=== PATIENT | female | born 1955 | race Caucasian/White ===

== ENCOUNTER 2019-11-10 17:02 | Inpatient (IN) | payer MEDICARE, OTHER ==
--- NOTE | 2019-11-10 18:04 | ED ---
General Adult HPI - General Chief complaint: Shortness of Breath Stated complaint: COPD exacerbation Time Seen by Provider: 11/10/19 17:31 Source: patient, EMS Mode of arrival: EMS Limitations: no limitations - History of Present Illness Initial comments: Patient is a 64-year-old female, with history of COPD, CHF, presenting to the emergency Department as a transfer from [facility]. She presented with a few weeks of difficulty breathing, chest pain, fatigue, cough. She also had pain in her epigastric area along with nausea and vomiting. Normal bowel movements, normal urination. Her chest pain is reported mostly on the right side of her chest. Patient is normally on 2 L of O2 at home. She's been having lower leg edema as well. Drinking alcohol today. Patient was transferred for COPD exacerbation and alcohol intoxication. Patient has no other complaints at this time. Upon arrival to the ER, her vital signs are stable, 97% on 3 L. - Related Data Allergies Allergy/AdvReac Type Severity Reaction Status Date / Time No Known Allergies Allergy Verified 11/10/19 17:09 Review of Systems ROS Statement: Those systems with pertinent positive or pertinent negative responses have been documented in the HPI. ROS Other: All systems not noted in ROS Statement are negative. Past Medical History Past Medical History: Asthma, Heart Failure, COPD History of Any Multi-Drug Resistant Organisms: None Reported Past Surgical History: No Surgical Hx Reported Smoking Status: Current every day smoker Past Alcohol Use History: Daily Past Drug Use History: None Reported General Exam - General Exam Comments Initial Comments: GENERAL: Well-appearing, well-nourished and in no acute distress. HEAD: Atraumatic, normocephalic. EYES: Pupils equal round and reactive to light, extraocular movements intact, sclera anicteric, conjunctiva are normal. ENT: TMs normal, nares patent, oropharynx clear without exudates. Moist mucous membranes. NECK: Normal range of motion, supple without lymphadenopathy or JVD. LUNGS: Scattered wheezes throughout, increase with forced expiration. No rales or rhonchi. HEART: Regular rate and rhythm without murmurs, rubs or gallops. ABDOMEN: Soft, nontender, normoactive bowel sounds. No guarding, no rebound. No masses appreciated. : Deferred EXTREMITIES: Mild bilateral lower leg edema. Normal range of motion. No clubbing or cyanosis. Chronic back pain. NEUROLOGICAL: Cranial nerves II through XII grossly intact. Normal speech,. PSYCH: Normal mood, normal affect. SKIN: Warm, Dry, normal turgor, no rashes or lesions noted. Limitations: no limitations Course Vital Signs 11/10/19 11/10/19 11/10/19 17:09 18:05 19:37 Temperature 98.5 F Pulse Rate 83 89 Respiratory 22 24 19 Rate Blood Pressure 151/76 146/99 O2 Sat by Pulse 97 90 L Oximetry EKG Findings - EKG Comments: EKG Findings:: , Nonspecific T-wave abnormalities, no signs of acute ischemia. Ventricular rate 78, KS interval 162, QTC 458. Medical Decision Making - Medical Decision Making Patient 64-year-old female with history of COPD, CHF presenting as a transfer from [facility]. Workup from [facility] was reviewed and includes lab work shows elevated BUN, BNP normal, lactic acid is normal, EtOH is 287. EKG shows no signs of acute ischemia, chest x-ray showed cardiomegaly, CT chest no evidence of PE or acute process, CT abdomen and pelvis no acute process. Patient received a breathing treatment, prednisone, fluids, doxycycline before arrival. Upon arrival to our facility, her vital signs are stable she is on at 97% on 3 L. She seems comfortable. Her only complaint at this time is lower leg edema. EKG here shows no acute process. Patient will be admitted for COPD exacerbation as well as alcohol intoxication. Patient is in agreement with this plan. Patient was accepted by Dr. Jones COVID is negative. Case discussed with Dr. Thorpe. - Lab Data Lab Results 11/10/19 Range/Units 19:40 Coronavirus (PCR) Not Detected (Not Detectd) Disposition Clinical Impression: Congestive heart failure, COPD exacerbation, Alcohol intoxication Disposition: ADMITTED IP TO THIS HOSP Condition: Stable Is patient prescribed a controlled substance at d/c from ED?: No Referrals: Charli Richardson DO [Primary Care Provider] - 1-2 days Decision Date: 11/10/19 Decision Time: 19:08
[2019-11-10] MEDS ORDERED: NALOXONE 0.4 MG/ML 1 ML VIAL IV PRN (19:06)
[2019-11-10] MEDS ORDERED: SODIUM CHLORIDE 0.9% 1,000 ML IV STA (19:29)
[2019-11-10] MEDS ORDERED: LORazepam 2 MG/ML INJ IV PRN ×3 (21:19)
[2019-11-10] MEDS ORDERED: IPRATROPIUM-ALBUTEROL 3 ML NEB INHALATION PRN (21:23)
--- NOTE | 2019-11-10 21:28 | P.HPIM ---
History of Present Illness H&P Date: 11/10/19 The patient is a 64-year-old female with a PMH of COPD with chronic hypoxic respiratory failure (on 2 L NC oxygen at home), chronic EtOH abuse, and hypertension who was transferred from [facility] where the patient had presented earlier in the day with complaints of gradually worsening sh ortness of breath and cough. Patient reports that over the last one week, her breathing has gradually worsened, despite her use of inhalers and oxygen therapy at home. She also notes that cough productive of whitish phlegm, with wheezing and a right-sided chest discomfort brought on with excessive coughing. She notes that her chest pain is nonexertional, nonradiating, with no associated palpitations. She feels that this is very much in line with her previous episodes of COPD exacerbation. He notes that she has also been drinking excessively for the past 1 week, drinking a fifth of vodka and to 3 days, with her last drink being early in the morning. Patient also reported noticing bilateral foot swelling over the past 3 days. She notes that she was previously told she had congestive heart failure. She also notes that over the past few days she has been unable to eat or drink much due to a persistent nausea and coughing. The patient otherwise denied fever, chills, diarrhea, headaches, visual disturbances, weakness, or numbness. She underwent an extensive evaluation at [facility] which was all reviewed, with CT chest with contrast negative for PE and unremarkable. CT abdomen and pelvis with contrast revealed a 2.3 cm low-density lesion in the right adnexa, possibly a cyst, but was otherwise unremarkable. EKG had revealed a normal sinus rhythm at 78 bpm with left axis deviation and T-wave inversion in leads V1 to V3. Laboratory evaluation had revealed a BNP of 35, troponin negative, alcohol level 258, BUN 33, creatinine 1.2, WBC 8.1, hemoglobin 13.3, platelets 358, sodium 141, potassium 4.3, chloride 108, CO2 24, lactate 1.7, lipase 68, Tylenol level of 7, AST 19, and ALT 16. Coronavirus pcr was negative. The patient is being admitted to the medicine service for further management of acute COPD exacerbation and alcohol intoxication. Review of Systems Pertinent positives and negatives as discussed in HPI, a complete review of systems was performed and all other systems are negative. Past Medical History Past Medical History: Asthma, Heart Failure, COPD, Hypertension History of Any Multi-Drug Resistant Organisms: None Reported Past Surgical History: No Surgical Hx Reported Smoking Status: Current every day smoker Past Alcohol Use History: Daily Past Drug Use History: None Reported - Past Family History Father Family Medical History: Hypertension Medications and Allergies Home Medications Medication Instructions Recorded Confirmed Type ALPRAZolam [Xanax] 0.375 mg PO HS 11/10/19 11/10/19 History Albuterol Sulfate [Ventolin HFA] 2 puff INHALATION RT-Q4H PRN 11/10/19 11/10/19 History Ascorbic Acid [Vitamin C] 1,000 mg PO Q48H 11/10/19 11/10/19 History Atenolol [Tenormin] 50 mg PO DAILY 11/10/19 11/10/19 History Benralizumab [Fasenra] 30 mg SQ DIRECTED 11/10/19 11/10/19 History Budesonide/Formoterol Fumarate 2 puff INHALATION RT-BID 11/10/19 11/10/19 History [Symbicort 80-4.5 Mcg Inhaler] FLUoxetine HCL [PROzac] 20 mg PO DAILY 11/10/19 11/10/19 History Hydrocodone/Acetaminophen [Keeling 1 tab PO BID PRN 11/10/19 11/10/19 History 5-325] Isosorbide Mononitrate ER [Imdur] 15 mg PO DAILY 11/10/19 11/10/19 History Loratadine 10 mg PO DAILY 11/10/19 11/10/19 History Montelukast Sodium [Singulair] 10 mg PO HS 11/10/19 11/10/19 History Dunn-3 Fatty Acids [Dunn-3] 1,000 mg PO Q48H 11/10/19 11/10/19 History Triamterene/Hydrochlorothiazid 1 cap PO DAILY 11/10/19 11/10/19 History [Dyazide 37.5-25 Capsule] Allergies Allergy/AdvReac Type Severity Reaction Status Date / Time No Known Allergies Allergy Verified 11/10/19 21:17 Physical Exam Vitals: Vital Signs Temp Pulse Resp BP Pulse Ox 11/10/19 19:37 89 19 146/99 90 L 11/10/19 18:05 24 11/10/19 17:09 98.5 F 83 22 151/76 97 Intake and Output 11/10/19 11/10/19 11/10/19 06:59 14:59 22:59 Other: Weight 68.039 kg General: non toxic, no distress, appears at stated age, normal weight, somewhat tremulous Derm: no unusual rashes/lesions no unusual ecchymoses, warm, dry Head: atraumatic, normocephalic, symmetric Eyes: EOMI, no lid lag, anicteric sclera, pupils equal round reactive to light ENT: Nose and ears atraumatic, no thrush, no pharyngeal erythema Neck: No thyromegaly, no cervical lymphadenopathy, trachea midline, supple Mouth: no lip lesion, mucus membranes moist Cardiovascular: S1S2 reg, no murmur, positive posterior tibial pulse bilateral, 1+ bilateral lower extremity edema to mid shins, capillary refill less than 2 seconds Lungs: Poor air entry bilaterally with expiratory wheezing appreciated, no rhonchi or rales, no conversational dyspnea and no accessory muscle use Abdominal: soft, nontender to palpation, no guarding, no appreciable organomegaly, normal bowel sounds Ext: no gross muscle atrophy, muscle strength 5 out of 5 in all 4 extremities grossly, no contractures, Neuro: CN II-XI grossly intact, light touch intact all 4 extremities, finger to nose within normal limits, outstretched hand tremor bilaterally Psych: Alert, oriented, appropriate affect Assessment and Plan Plan: Acute COPD exacerbation -Continue with Solu-Medrol -DuoNeb's -Supplemental oxygen -Continue with home Symbicort Bilateral lower extremity edema with cardiomegaly on chest x-ray at [facility] -Obtain echocardiogram -Continue with home Dyazide 37.5 - 25 mg -Very judicious use of IV fluids Right-sided chest pain with possible history of CHF -Trend troponins for now -Cardiac monitoring Alcohol intoxication, impending withdrawal -Thiamine, folate, multivitamin -Advised on the importance of cessation -CIWA protocol -Aspiration, seizure, fall precautions -Monitor electrolytes daily STEPHEN, prerenal, likely secondary to poor oral intake -Judicious use of IV fluids in setting of lower extremity edema -Monitor BMP Chronic conditions: Hypertension -Continue with home meds: Atenolol, Imdur, Dyazide DVT prophylaxis -Heparin subq The patient is admitted with an anticipated less than 2 midnight stay for evaluation of acute COPD exacerbation CODE STATUS: No Code Discussed with: Patient Anticipated discharge date: 11/12/[address]: Home A total of 40 minutes was spent on the care of this complex patient more than 50% of the time was spent in counseling and care coordination.
[2019-11-10] MEDS: THIAMINE 100 MG TAB PO SCH (22:27)
[2019-11-11] MEDS: methylPREDNISolone SOD SUCCI 125 MG/2 ML VIAL IV SCH ×2 (00:02→07:41)
[2019-11-11] MEDS: HEPARIN SODIUM,PORCINE 5,000 UNIT/ML 1 ML VIAL SQ SCH ×3 (00:02→15:34)
[2019-11-11 06:17] LABS: Basophils % (A) 0 %; Eosinophils % (A) 1 %; HGB 13.2 gm/dL (11.4-16.0); Hypochromasia Slight; Lymphocytes # (A) 0.7 k/uL (1.0-4.8); Lymphocytes % (A) 9 %; MCH 30.4 pg (25.0-35.0); MCHC 30.8 g/dL (31.0-37.0); MCV 98.9 fL (80.0-100.0); Monocytes # (A) 0.2 k/uL (0-1.0); Monocytes % (A) 2 %; Neutrophils # (A) 6.9 k/uL (1.3-7.7); Neutrophils % (A) 89 %; Platelet Count 334 k/uL (150-450); RBC 4.35 m/uL (3.80-5.40); RDW 13.8 % (11.5-15.5); WBC 7.8 k/uL (3.8-10.6)
[2019-11-11 06:27] LABS: Calcium 9.3 mg/dL (8.4-10.2); Magnesium 1.8 mg/dL (1.6-2.3); Potassium 5.3 mmol/L (3.5-5.1)
[2019-11-11] MEDS: ISOSORBIDE MONONITRATE ER 30 MG TAB.ER.24H PO SCH (07:39)
[2019-11-11] MEDS: FLUoxetine HCL 20 MG CAP PO SCH (07:40)
[2019-11-11] MEDS: THIAMINE 100 MG TAB PO SCH ×2 (07:40→16:37)
[2019-11-11] MEDS: ATENOLOL 50 MG TAB PO SCH (07:40)
[2019-11-11] MEDS: MULTIVITAMINS, THERA 1 EACH TAB PO SCH (07:40)
[2019-11-11] MEDS: TRIAMTERENE-HCTZ 37.5-25MG 1 EACH CAP PO SCH (07:54)
[2019-11-11] MEDS ORDERED: IPRATROPIUM-ALBUTEROL 3 ML NEB INHALATION SCH (08:00)
[2019-11-11] MEDS ORDERED: predniSONE 20 MG TAB PO SCH (09:00)
[2019-11-11] MEDS ORDERED: IBUPROFEN 400 MG TAB PO PRN (09:11)
--- NOTE | 2019-11-11 10:26 | ECHOF ---
Referral Reason:LE edema, SOB, Cardiomegaly MEASUREMENTS -------- HEIGHT: 162.6 cm WEIGHT: 68.0 kg BP: RVIDd: 2.5 cm (< 3.3) IVSd: 1.2 cm (0.6 - 1.1) LVIDd: 3.0 cm (3.9 - 5.3) LVPWd: 1.6 cm (0.6 - 1.1) IVSs: 1.9 cm LVIDs: 1.6 cm LVPWs: 2.0 cm Ao Diam: 2.5 cm (2.0 - 3.7) AV Cusp: 1.7 cm (1.5 - 2.6) LA Diam: 3.6 cm (2.7 - 3.8) MV E Marty: 0.93 m/s MV DecT: 97 ms MV A Marty: 0.44 m/s MV E/A Ratio: 2.09 RAP: 5.00 mmHg RVSP: 9.03 mmHg FINDINGS -------- Undetermined rhythm. This was a technically difficult study with suboptimal views. The left ventricular size is normal. There is mild concentric left ventricular hypertrophy. Overa ll left ventricular systolic function is normal with, an EF between 55 - 60 %. The right ventricle is normal in size. The left atrial size is normal. The right atrial size is normal. 5.0mg of Lumason was utilized for enhancement of images The aortic valve is trileaflet and appears structurally normal. The mitral valve is normal. There is trace mitral regurgitation. The tricuspid valve appears structurally normal. Trace tricuspid regurgitation present. Right mychal tricular systolic pressure is normal at < 35 mmHg. There is no pulmonic regurgitation present. The aortic root size is normal. IVC Not well visulized. There is no pericardial effusion. CONCLUSIONS -------- 1. Undetermined rhythm. 2. This was a technically difficult study with suboptimal views. 3. The left ventricular size is normal. 4. There is mild concentric left ventricular hypertrophy. 5. Overall left ventricular systolic function is normal with, an EF between 55 - 60 %. 6. The right ventricle is normal in size. 7. The left atrial size is normal. 8. The right atrial size is normal. 9. 5.0mg of Lumason was utilized for enhancement of images 10. The aortic valve is trileaflet and appears structurally normal. 11. The mitral valve is normal. 12. There is trace mitral regurgitation. 13. The tricuspid valve appears structurally normal. 14. Trace tricuspid regurgitation present. 15. Right ventricular systolic pressure is normal at < 35 mmHg. 16. There is no pulmonic regurgitation present. 17. The aortic root size is normal. 18. IVC Not well visulized. 19. There is no pericardial effusion. [employer] C[employer]TING MACHINE OPERATOR: Hyalie Kessler RDCS
--- NOTE | 2019-11-11 10:40 | P.PN ---
Subjective Progress Note Date: 11/11/19 The patient is a 64-year-old female with a PMH of COPD with chronic hypoxic respiratory failure (on 2 L NC oxygen at home), chronic EtOH abuse, and hypertension who was transferred from [facility] where the patient had presented earlier in the day with complaints of gradually worsening shortnes s of breath and cough. Patient reports that over the last one week, her breathing has gradually worsened, despite her use of inhalers and oxygen therapy at home. She also notes that cough productive of whitish phlegm, with wheezing and a right-sided chest discomfort brought on with excessive coughing. She notes that her chest pain is nonexertional, nonradiating, with no associated palpitations. She feels that this is very much in line with her previous episodes of COPD exacerbation. He notes that she has also been drinking excessively for the past 1 week, drinking a fifth of vodka and to 3 days, with her last drink being early in the morning. Patient also reported noticing bilateral foot swelling over the past 3 days. She notes that she was previously told she had congestive heart failure. She also notes that over the past few days she has been unable to eat or drink much due to a persistent nausea and coughing. The patient otherwise denied fever, chills, diarrhea, headaches, v isual disturbances, weakness, or numbness. She underwent an extensive evaluation at [facility] which was all reviewed, with CT chest with contrast negative for PE and unremarkable. CT abdomen and pelvis with contrast revealed a 2.3 cm low-density lesion in the right adnexa, possibly a cyst, but was otherwise unremarkable. EKG had revealed a normal sinus rhythm at 78 bpm with left axis deviation and T-wave inversion in leads V1 to V3. Laboratory evaluation had revealed a BNP of 35, troponin negative, alcohol level 258, BUN 33, creatinine 1.2, WBC 8.1, hemoglobin 13.3, platelets 358, sodium 141, potassium 4.3, chloride 108, CO2 24, lactate 1.7, lipase 68, Tylenol level of 7, AST 19, and ALT 16. Coronavirus pcr was negative. The patient is being admitted to the medicine service for further management of acute COPD exacerbation and alcohol intoxication. 11/10 patient was seen and evaluated by me today. She reported that her shortness of breath is improving but is not back to baseline yet. She admitted that she is still smoking cigarettes approximately 10 cigarettes per day. She denies fevers or chills. No orthopnea. Patient denies any chest pain Objective - Vital Signs Vital signs: Vital Signs Temp 98.5 F 11/11/19 05:00 Pulse 96 11/11/19 07:28 Resp 24 11/11/19 05:00 BP 177/98 11/11/19 05:00 Pulse Ox 92 L 11/11/19 05:00 Intake & Output 11/10/19 11/11/19 11/11/19 18:59 06:59 18:59 Intake Total 240 Balance 240 Weight 68.039 kg 68.039 kg 70.4 kg Intake: Oral 240 Other: Voiding Method Bedside Commode # Voids 2 2 # Bowel Movements 1 1 - Exam General: The patient is awake and alert, in no distress Eye: there is normal conjunctiva bilaterally. Neck: The neck is supple, there is no JVD. Cardiovascular: Normal S1-S2, no S3-S4, no murmurs. Respiratory: Lungs with diffuse wheezing all over the chest Gastrointestinal: Abdomen is soft, nontender Musculoskeletal: There is no pedal edema. Neurological:. Speech is normal. Skin: Skin is warm and dry - Labs CBC & Chem 7: 11/11/19 05:58 11/11/19 05:58 Labs: Abnormal Lab Results - Last 24 Hours (Table) 11/11/19 11/11/19 Range/Units 05:58 05:58 MCHC 30.8 L (31.0-37.0) g/dL Lymphocytes # 0.7 L (1.0-4.8) k/uL Potassium 5.3 H (3.5-5.1) mmol/L BUN 29 H (7-17) mg/dL Glucose 126 H (74-99) mg/dL Assessment and Plan Assessment: Acute COPD exacerbation -Continue with Solu-Medrol, I would decrease the dose to 40 mg IV every 8 hours. May transition to oral prednisone tomorrow -DuoNeb's, I would change to every 4 hours scheduled -Supplemental oxygen -Continue with home Symbicort Bilateral lower extremity trace edema with cardiomegaly on chest x-ray at [facility] -BNP was normal. Echocardiogram showed preserved ejection fraction of 55-60% -Probably venous insufficiency Alcohol intoxication, no evidence of withdrawal -Thiamine, folate, multivitamin -Advised on the importance of cessation -CIWA protocol as needed -Aspiration, seizure, fall precautions -Monitor electrolytes daily STEPHEN, prerenal, likely secondary to poor oral intake -Resolved with IV fluid hydration would discontinue Chronic conditions: Hypertension -Continue with home meds: Atenolol, Imdur, Dyazide DVT prophylaxis -Heparin subq The patient is admitted with an anticipated less than 2 midnight stay for evaluation of acute COPD exacerbation CODE STATUS: No Code Discussed with: Patient Anticipated discharge date: 11/12/[address]: Home
[2019-11-11] MEDS: SYMBICORT 80-4.5 MCG INHALER INHALATION SCH ×2 (10:53→20:29)
[2019-11-11] MEDS: IPRATROPIUM-ALBUTEROL 3 ML NEB INHALATION SCH ×3 (10:53→20:20)
[2019-11-11] MEDS: methylPREDNISolone SOD SUCCI 40 MG/ML 1 ML VIAL IV SCH (15:34)
[2019-11-11] MEDS: HYDROcodone/APAP 5-325MG 1 EACH TAB PO PRN (19:27)
[2019-11-11] MEDS: MONTELUKAST 10 MG TAB PO SCH (19:28)
[2019-11-12] MEDS: methylPREDNISolone SOD SUCCI 40 MG/ML 1 ML VIAL IV SCH ×4 (00:35→21:22)
[2019-11-12] MEDS: HEPARIN SODIUM,PORCINE 5,000 UNIT/ML 1 ML VIAL SQ SCH ×3 (00:35→16:57)
[2019-11-12] MEDS: HYDROcodone/APAP 5-325MG 1 EACH TAB PO PRN ×2 (00:38→16:58)
[2019-11-12] MEDS: IPRATROPIUM-ALBUTEROL 3 ML NEB INHALATION SCH ×6 (01:50→19:08)
[2019-11-12 06:36] LABS: Basophils % (A) 0 %; Eosinophils % (A) 0 %; HCT 40.1 % (34.0-46.0); HGB 13.1 gm/dL (11.4-16.0); Lymphocytes # (A) 0.8 k/uL (1.0-4.8); Lymphocytes % (A) 10 %; MCH 31.6 pg (25.0-35.0); MCHC 32.7 g/dL (31.0-37.0); MCV 96.6 fL (80.0-100.0); Mean Platelet Volume 7.5; Monocytes # (A) 0.2 k/uL (0-1.0); Monocytes % (A) 3 %; Neutrophils % (A) 87 %; Platelet Count 327 k/uL (150-450); RBC 4.15 m/uL (3.80-5.40); RDW 13.7 % (11.5-15.5); WBC 8.1 k/uL (3.8-10.6)
[2019-11-12 06:48] LABS: Calcium 9.5 mg/dL (8.4-10.2); Potassium 4.5 mmol/L (3.5-5.1)
[2019-11-12] MEDS: SYMBICORT 80-4.5 MCG INHALER INHALATION SCH ×2 (07:30→19:09)
[2019-11-12] MEDS: TRIAMTERENE-HCTZ 37.5-25MG 1 EACH CAP PO SCH (07:53)
[2019-11-12] MEDS: MULTIVITAMINS, THERA 1 EACH TAB PO SCH (07:54)
[2019-11-12] MEDS: THIAMINE 100 MG TAB PO SCH ×2 (07:54→16:57)
[2019-11-12] MEDS: ISOSORBIDE MONONITRATE ER 30 MG TAB.ER.24H PO SCH (07:54)
[2019-11-12] MEDS: FLUoxetine HCL 20 MG CAP PO SCH (07:54)
[2019-11-12] MEDS: ATENOLOL 50 MG TAB PO SCH (07:54)
--- NOTE | 2019-11-12 08:46 | P.PN ---
Subjective Progress Note Date: 11/12/19 Principal diagnosis: copd exacerbation 11/12/19 Patient seen and examined at bedside. Patient states that her breathing has improved since yesterday. However, patient continues to have expiratory wheezing. Patient denies chest pain, fever, chills, nausea, vomiting, diarrhea, or constipation. The patient is a 64-year-old female with a PMH of COPD with chronic hypoxic respiratory failure (on 2 L NC oxygen at home), chronic EtOH abuse, and hypertension who was transferred from [facility] where the patient had presented earlier in the day with complaints of gradually worsening shortness of breath and cough. Patient reports that over the last one week, her breathing has gradually worsened, despite her use of inhalers and oxygen therapy at home. She also notes that cough productive of whitish phlegm, with wheezing and a right-sided chest discomfort brought on with excessive coughing. She notes that her chest pain is nonexertional, nonradiating, with no associated palpitations. She feels that this is very much in line with her previous episodes of COPD exacerbation. He notes that she has also been drinking excessively for the past 1 week, drinking a fifth of vodka and to 3 days, with her last drink being early in the morning. Patient also reported noticing bilateral foot swelling over the past 3 days. She notes that she was previously told she had congestive heart failure. She also notes that over the past few days she has been unable to eat or drink much due to a persistent nausea and coughing. The patient otherwise denied fever, chills, diarrhea, headaches, visual disturbances, weakness, or numbness. She underwent an extensive evalu ation at [facility] which was all reviewed, with CT chest with contrast negative for PE and unremarkable. CT abdomen and pelvis with contrast revealed a 2.3 cm low-density lesion in the right adnexa, possibly a cyst, but was otherwise unremarkable. EKG had revealed a normal sinus rhythm at 78 bpm with left axis deviation and T-wave inversion in leads V1 to V3. Laboratory evaluation had revealed a BNP of 35, troponin negative, alcohol level 258, BUN 33, creatinine 1.2, WBC 8.1, hemoglobin 13.3, platelets 358, sodium 141, potassium 4.3, chloride 108, CO2 24, lactate 1.7, lipase 68, Tylenol level of 7, AST 19, and ALT 16. Coronavirus pcr was negative. The patient is being admitted to the medicine service for further management of acute COPD exacerbation and alcohol intoxication. Objective - Vital Signs Vital signs: Vital Signs Temp 98.1 F 11/12/19 05:00 Pulse 89 11/12/19 05:00 Resp 18 11/12/19 05:00 BP 156/90 11/12/19 05:00 Pulse Ox 98 11/12/19 05:00 Intake & Output 11/11/19 11/12/19 11/12/19 18:59 06:59 18:59 Intake Total 1400 1500 Balance 1400 1500 Weight 70.4 kg 68.5 kg Intake: Intake, IV Titration 480 Amount Sodium Chloride 0.9% 1, 480 000 ml @ 60 mls/hr IV . [id number] STA Rx#:[id number] Oral 1400 1020 Other: Voiding Method Bedside Commode Bedside Commode # Voids 1 1 # Bowel Movements 1 - Exam General: [non toxic], [no distress], [appears at stated age] Derm: [warm], [dry] Head: [atraumatic], [normocephalic], [symmetric] Eyes: [EOMI], [no lid lag], [anicteric sclera] Mouth: [no lip lesion], [mucus membranes moist] Cardiovascular: [S1S2 reg], [no murmur], [positive posterior tibial pulse bilateral], Lungs: [bilateral expiratory wheezing], [rhonchi, no rales] , [no accessory muscle use] Abdominal: [soft], [ nontender to palpation], [no guarding], [no appreciable organomegaly] Ext: [no gross muscle atrophy], [no edema], [no contractures] Neuro: [ CN II-XI grossly intact], [no focal neuro deficits] Psych: [Alert], [oriented], [appropriate affect] - Labs CBC & Chem 7: 11/12/19 05:47 11/12/19 05:47 Labs: Abnormal Lab Results - Last 24 Hours (Table) 11/12/19 11/12/19 Range/Units 05:47 05:47 Lymphocytes # 0.8 L (1.0-4.8) k/uL Sodium 134 L (137-145) mmol/L BUN 30 H (7-17) mg/dL Glucose 143 H (74-99) mg/dL Assessment and Plan Assessment: Acute COPD exacerbation: patient continues to have expiratory wheezing -Continue with Solu-Medrol, decrease dose to 40mg IVP q 12Hours . May transition to oral prednisone tomorrow -repeat CXR -DuoNececilia's, I would change to every 4 hours scheduled -Supplemental oxygen -Continue with home Symbicort Bilateral lower extremity trace edema with cardiomegaly on chest x-ray at [facility]- Improved today -BNP was normal. Echocardiogram showed preserved ejection fraction of 55-60% -Probably venous insufficiency Alcohol intoxication, no evidence of withdrawal -Thiamine, folate, multivitamin -Advised on the importance of cessation -CIWA protocol as needed -Aspiration, seizure, fall precautions -Monitor electrolytes daily STEPHEN, prerenal, likely secondary to poor oral intake-resolved -Resolved with IV fluid hydration would discontinue Chronic conditions: Hypertension -Continue with home meds: Atenolol, Imdur, Dyazide DVT prophylaxis -Heparin subq The patient is admitted with an anticipated less than 2 midnight stay for evaluation of acute COPD exacerbation CODE STATUS: No Code Discussed with: Patient Anticipated discharge date: 11/13/[address]: Home
--- NOTE | 2019-11-12 10:10 | XR ---
EXAMINATION TYPE: XR chest 2V DATE OF EXAM: 11/12/2019 HISTORY: wheezing . REFERENCE: NONE. FINDINGS: The lungs are overinflated. Heart is enlarged. The lungs appear clear. There is blunting of the right CP angle. I could not exclude a small effusion. There is metallic hardware associated with the right humeral head. IMPRESSION: 1. COPD. 2. I CANNOT EXCLUDE A SMALL RIGHT EFFUSION. 3. CARDIOMEGALY.
[2019-11-12 10:58] VITALS: BMI 25.9
[2019-11-12] MEDS: MONTELUKAST 10 MG TAB PO SCH (21:22)
[2019-11-13] MEDS: HEPARIN SODIUM,PORCINE 5,000 UNIT/ML 1 ML VIAL SQ SCH ×2 (00:06→08:05)
[2019-11-13] MEDS: IPRATROPIUM-ALBUTEROL 3 ML NEB INHALATION SCH ×4 (00:51→10:59)
[2019-11-13 06:26] LABS: Basophils % (A) 0 %; Eosinophils # (A) 0.1 k/uL (0-0.7); Eosinophils % (A) 1 %; HCT 39.8 % (34.0-46.0); HGB 13.1 gm/dL (11.4-16.0); Lymphocytes # (A) 0.7 k/uL (1.0-4.8); Lymphocytes % (A) 8 %; MCH 31.6 pg (25.0-35.0); MCHC 32.8 g/dL (31.0-37.0); MCV 96.3 fL (80.0-100.0); Mean Platelet Volume 7.6; Monocytes # (A) 0.2 k/uL (0-1.0); Monocytes % (A) 3 %; Neutrophils # (A) 8.1 k/uL (1.3-7.7); Neutrophils % (A) 88 %; Platelet Count 249 k/uL (150-450); RBC 4.14 m/uL (3.80-5.40); RDW 13.8 % (11.5-15.5); WBC 9.2 k/uL (3.8-10.6)
[2019-11-13 06:36] LABS: Calcium 9.6 mg/dL (8.4-10.2); Potassium 4.5 mmol/L (3.5-5.1)
[2019-11-13] MEDS: SYMBICORT 80-4.5 MCG INHALER INHALATION SCH (07:47)
[2019-11-13] MEDS: FLUoxetine HCL 20 MG CAP PO SCH (08:05)
[2019-11-13] MEDS: THIAMINE 100 MG TAB PO SCH (08:05)
[2019-11-13] MEDS: ATENOLOL 50 MG TAB PO SCH (08:05)
[2019-11-13] MEDS: methylPREDNISolone SOD SUCCI 40 MG/ML 1 ML VIAL IV SCH (08:06)
[2019-11-13] MEDS: TRIAMTERENE-HCTZ 37.5-25MG 1 EACH CAP PO SCH (08:06)
[2019-11-13] MEDS: MULTIVITAMINS, THERA 1 EACH TAB PO SCH (08:06)
[2019-11-13] MEDS: ISOSORBIDE MONONITRATE ER 30 MG TAB.ER.24H PO SCH (08:06)
[2019-11-13] MEDS: HYDROcodone/APAP 5-325MG 1 EACH TAB PO PRN (08:14)
[2019-11-13] MEDS ORDERED: AZITHROMYCIN 500 MG TAB PO STA (08:17)
--- NOTE | 2019-11-13 08:51 | P.DS ---
Providers Date of admission: 11/12/19 09:05 Expected date of discharge: 11/13/19 Attending physician: Carin Antonio MD Primary care physician: Charli Richardson [facility] Course: Admitting diagnoses: 1. Acute COPD exacerbation 2. Lower extremity edema 3. Alcohol intoxication 4. Acute kidney injury 5. Hypertension 6. Anxiety and depression Discharge diagnoses: 1. Acute exacerbation of COPD improved discharge with home oxygen 2. Lower extremity edema secondary to venous insufficiency echocardiogram reveals normal ejection fraction 3. Alcohol intoxication resolved 4. Acute kidney injury resolved 5. Hypertension stable 6. Anxiety and depression stable 7. Tobacco dependence with cessation counseling provided Patient seen and examined at bedside. Patient states that her shortness of breath has greatly improved. Patient further states that she is at her baseline. Patient denies nausea vomiting fevers or chills. Patient is eager to go home. Patient is on home oxygen. Patient is to be discharged with her home oxygen. Home care is recommended. Patient's to follow-up with her PCP in 1-2 days. The patient is a 64-year-old female with a PMH of COPD with chronic hypoxic respiratory failure (on 2 L NC oxygen at home), chronic EtOH abuse, and hypertension who was transferred from [facility] where the patient had presented earlier in the day with complaints of gradually worsening shortness of breath and cough. Patient reports that over the last one week, her breathing has gradually worsened, despite her use of inhalers and oxygen therapy at home. She also notes that cough productive of whitish phlegm, with wheezing and a right-sided chest discomfort brought on with excessive coughing. She notes that her chest pain is nonexertional, nonradiating, with no associated palpitations. She feels that this is very much in line with her previous episodes of COPD exacerbation. He notes that she has also been drinking excessively for the past 1 week, drinking a fifth of vodka and to 3 days, with her last drink being early in the morning. Patient also reported noticing bilateral foot swelling over the past 3 days. She notes that she was previously told she had congestive heart failure. She also notes that over the past few days she has been unable to eat or drink much due to a persistent nausea and coughing. The patient otherwise denied fever, chills, diarrhea, headaches, visual disturbances, weakness, or numbness. She underwent an extensive evaluation at [facility] which was all reviewed, with CT chest with contrast negative for PE and unremarkable. CT abdomen and pelvis with contrast revealed a 2.3 cm low-density lesion in the right adnexa, possibly a cyst, but was otherwise unremarkable. EKG had revealed a normal sinus rhythm at 78 bpm with left axis deviation and T-wave inversion in leads V1 to V3. Laboratory evaluation had revealed a BNP of 35, troponin negative, alcohol level 258, BUN 33, creatinine 1.2, WBC 8.1, hemoglobin 13.3, platelets 358, sodium 141, potassium 4.3, chloride 108, CO2 24, lactate 1.7, lipase 68, Tylenol level of 7, AST 19, and ALT 16. Coronavirus pcr was negative. The patient is being admitted to the medicine service for further management of acute COPD exacerbation and alcohol intoxication. Kidney function did improve with IV hydration. Patient's shortness of breath improved with IV steroids and breathing treatments. Echocardiogram was obtained secondary to lower extremity edema. Echocardiogram showed overall left ventricular systolic function normal with an ejection fraction of 55-60%. There is mild concentric left ventricular hypertrophy. Repeat chest x-ray before discharge showed COPD and radiologist was questioning a small right effusion that he could not exclude as a result patient will be discharged on azithromycin with steroid taper. Smoking and alcohol cessation counseling was provided. Patient was started on a nicotine patch. Vitals: Temperature 98.5F orally heart rate 91 respiratory rate 16 oxygen saturation 99% on 3 L nasal cannula blood pressure 124/70 with medications General: [non toxic], [no distress], [appears at stated age] Derm: [warm], [dry] Head: [atraumatic], [normocephalic], [symmetric] Eyes: [EOMI], [no lid lag], [anicteric sclera] Mouth: [no lip lesion], [mucus membranes moist] Cardiovascular: [S1S2 reg], [no murmur], [positive posterior tibial pulse bilateral], Lungs: [mild bilateral expiratory wheezing], [no rhonchi, no rales] , [no accessory muscle use] Abdominal: [soft], [ nontender to palpation], [no guarding], [no appreciable organomegaly] Ext: [no gross muscle atrophy], [no edema], [no contractures] Neuro: [ CN II-XI grossly intact], [no focal neuro deficits] Psych: [Alert], [oriented], [appropriate affect] Condition fair Diet cardiac Activity as tolerated Disposition home with home care Follow up with PCP in 1-2 days Greater than 45 minutes spent coordinating care and counseling Patient Condition at Discharge: Stable Plan - Discharge Summary Discharge Rx Participant: Yes New Discharge Prescriptions: New Nicotine 14Mg/24Hr Patch [Habitrol] 1 patch TRANSDERM DAILY #30 patch predniSONE [Deltasone] 60 mg PO DAILY #64 tab Ipratropium-Albuterol Nebulize [Duoneb 0.5 mg-3 mg/3 ml Soln] 3 ml INHALATION RT-Q4H #100 ml Multivitamins, Thera [Multivitamin (formulary)] 1 each PO DAILY #30 tab Thiamine [Vitamin B-1] 100 mg PO BID-W/MEALS #30 tab Azithromycin [Zithromax] 250 mg PO DAILY #5 tab Continue [place]-3 Fatty Acids [[place]-3] 1,000 mg PO Q48H Ascorbic Acid [Vitamin C] 1,000 mg PO Q48H Montelukast Sodium [Singulair] 10 mg PO HS Loratadine 10 mg PO DAILY Budesonide/Formoterol Fumarate [Symbicort 80-4.5 Mcg Inhaler] 2 puff INHALATION RT-BID Albuterol Sulfate [Ventolin HFA] 2 puff INHALATION RT-Q4H PRN PRN Reason: Shortness Of Breath Hydrocodone/Acetaminophen [[place] 5-325] 1 tab PO BID PRN PRN Reason: Pain ALPRAZolam [Xanax] 0.375 mg PO HS Triamterene/Hydrochlorothiazid [Dyazide 37.5-25 Capsule] 1 cap PO DAILY Isosorbide Mononitrate ER [Imdur] 15 mg PO DAILY FLUoxetine HCL [PROzac] 20 mg PO DAILY Atenolol [Tenormin] 50 mg PO DAILY Benralizumab [Fasenra] 30 mg SQ DIRECTED Discharge Medication List ALPRAZolam [Xanax] 0.375 mg PO HS 11/10/19 [History] Albuterol Sulfate [Ventolin HFA] 2 puff INHALATION RT-Q4H PRN 11/10/19 [History] Ascorbic Acid [Vitamin C] 1,000 mg PO Q48H 11/10/19 [History] Atenolol [Tenormin] 50 mg PO DAILY 11/10/19 [History] Benralizumab [Fasenra] 30 mg SQ DIRECTED 11/10/19 [History] Budesonide/Formoterol Fumarate [Symbicort 80-4.5 Mcg Inhaler] 2 puff INHALATION RT-BID 11/10/19 [History] FLUoxetine HCL [PROzac] 20 mg PO DAILY 11/10/19 [History] Hydrocodone/Acetaminophen [[place] 5-325] 1 tab PO BID PRN 11/10/19 [History] Isosorbide Mononitrate ER [Imdur] 15 mg PO DAILY 11/10/19 [History] Loratadine 10 mg PO DAILY 11/10/19 [History] Montelukast Sodium [Singulair] 10 mg PO HS 11/10/19 [History] [place]-3 Fatty Acids [[place]-3] 1,000 mg PO Q48H 11/10/19 [History] Triamterene/Hydrochlorothiazid [Dyazide 37.5-25 Capsule] 1 cap PO DAILY 11/10/19 [History] Azithromycin [Zithromax] 250 mg PO DAILY #5 tab 11/13/19 [Rx] Ipratropium-Albuterol Nebulize [Duoneb 0.5 mg-3 mg/3 ml Soln] 3 ml INHALATION RT-Q4H #100 ml 11/13/19 [Rx] Multivitamins, Thera [Multivitamin (formulary)] 1 each PO DAILY #30 tab 11/13/19 [Rx] Nicotine 14Mg/24Hr Patch [Habitrol] 1 patch TRANSDERM DAILY #30 patch 11/13/19 [Rx] Thiamine [Vitamin B-1] 100 mg PO BID-W/MEALS #30 tab 11/13/19 [Rx] predniSONE [Deltasone] 60 mg PO DAILY #64 tab 11/13/19 [Rx] Follow up Appointment(s)/Referral(s): Charli Richardson DO [Primary Care Provider] - 1-2 days Discharge Disposition: HOME WITH HOME HEALTH SERVICES
[2019-11-13] MEDS ORDERED: predniSONE 20 MG TAB PO SCH (09:00)
[2019-11-13 12:26] VITALS: BP 136/71; PULSE 76; RESP 17; TEMP 97.7
[2019-11-14] MEDS ORDERED: AZITHROMYCIN 250 MG TAB PO SCH (09:00)
== END 2019-11-13 15:19 | disposition home health service (06) | DRG 191 ==
LOC: EC 17:02 → 5NMEDONC 19:09 → OBSVTOIN 11-12 09:05
PROVIDERS: ADMIT Family Medicine; ATTEND Family Medicine
DX: J44.1 Chronic obstructive pulmonary disease with (acute) exacerbation (principal); N17.9 Acute kidney failure, unspecified; J96.11 Chronic respiratory failure with hypoxia; F32.9 Major depressive disorder, single episode, unspecified; F17.210 Nicotine dependence, cigarettes, uncomplicated; F10.129 Alcohol abuse with intoxication, unspecified; I11.0 Hypertensive heart disease with heart failure; I87.2 Venous insufficiency (chronic) (peripheral); Y90.8 Blood alcohol level of 240 mg/100 ml or more; F41.9 Anxiety disorder, unspecified; I50.9 Heart failure, unspecified; Z79.51 Long term (current) use of inhaled steroids; Z79.899 Other long term (current) drug therapy; Z82.49 Family history of ischemic heart disease and other diseases of the circulatory system; Z11.59 Encounter for screening for other viral diseases; Z99.81 Dependence on supplemental oxygen
CPT/HCPCS: 71046; 80048; 83735; 85025; 87635; 93005; 93306; 94640; 94760; 99285

== ENCOUNTER 2023-01-07 18:16 | Inpatient (IN) | payer MEDICARE, OTHER ==
[2023-01-07] MEDS ORDERED: SODIUM CHLORIDE 0.9% 1,000 ML IV ONE (19:00)
--- NOTE | 2023-01-07 19:00 | ED ---
General Adult HPI - General Chief complaint: Recheck/Abnormal Lab/Rx Stated complaint: groin pain Time Seen by Provider: 01/07/23 18:20 Source: patient, EMS, RN notes reviewed, old records reviewed Mode of arrival: EMS - History of Present Illness Initial comments: This a 67-year-old female who presents to the emergency room stating that she had a catheterization done at another hospital and there was quite a bit of ecchymosis around the right groin and there was a lump that was tender so Dr. Hines want her to get an ULTRASOUND SHOWED A PSEUDOANEURYSM. SO THE PATIENT WAS TRANSFERRED to our hospital from [facility]. Patient denies any new symptoms today. Patient denies any other problems or complaints - Related Data Home Medications Medication Instructions Recorded Confirmed ALPRAZolam [Xanax] 0.375 mg PO HS 11/10/19 11/10/19 Albuterol Sulfate [Ventolin HFA] 2 puff INHALATION RT-Q4H PRN 11/10/19 11/10/19 Ascorbic Acid [Vitamin C] 1,000 mg PO Q48H 11/10/19 11/10/19 Benralizumab [Fasenra] 30 mg SQ DIRECTED 11/10/19 11/10/19 Budesonide/Formoterol Fumarate 2 puff INHALATION RT-BID 11/10/19 11/10/19 [Symbicort 80-4.5 Mcg Inhaler] FLUoxetine HCL [PROzac] 20 mg PO DAILY 11/10/19 11/10/19 Hydrocodone/Acetaminophen [[place] 1 tab PO BID PRN 11/10/19 11/10/19 5-325] Isosorbide Mononitrate ER [Imdur] 15 mg PO DAILY 11/10/19 11/10/19 Loratadine 10 mg PO DAILY 11/10/19 11/10/19 Montelukast Sodium [Singulair] 10 mg PO HS 11/10/19 11/10/19 [place]-3 Fatty Acids [[place]-3] 1,000 mg PO Q48H 11/10/19 11/10/19 Triamterene/Hydrochlorothiazid 1 cap PO DAILY 11/10/19 11/10/19 [Dyazide 37.5-25 Capsule] atenoloL [Tenormin] 50 mg PO DAILY 11/10/19 11/10/19 Previous Rx's Medication Instructions Recorded Azithromycin [Zithromax] 250 mg PO DAILY #5 tab 11/13/19 Ipratropium-Albuterol Nebulize 3 ml INHALATION RT-Q4H #100 ml 11/13/19 [Duoneb 0.5 mg-3 mg/3 ml Soln] Multivitamins, Thera [Multivitamin 1 each PO DAILY #30 tab 11/13/19 (formulary)] Nicotine 14Mg/24Hr Patch [Habitrol] 1 patch TRANSDERM DAILY #30 patch 11/13/19 Thiamine [Vitamin B-1] 100 mg PO BID-W/MEALS #30 tab 11/13/19 predniSONE [Deltasone] 60 mg PO DAILY #64 tab 11/13/19 Allergies Allergy/AdvReac Type Severity Reaction Status Date / Time No Known Allergies Allergy Verified 01/07/23 18:33 Review of Systems ROS Statement: Those systems with pertinent positive or pertinent negative responses have been documented in the HPI. ROS Other: All systems not noted in ROS Statement are negative. Past Medical History Past Medical History: Asthma, Chest Pain / Angina, Heart Failure, COPD, Deep Vein Thrombosis (DVT), Hyperlipidemia, Hypertension, Rheumatoid Arthritis (RA), Vascular Disorder History of Any Multi-Drug Resistant Organisms: None Reported Past Surgical History: Heart Catheterization, Tubal Ligation Additional Past Surgical History / Comment(s): titanium plate in right shoulder, left foot repair surgery, left ear surgery Past Anesthesia/Blood Transfusion Reactions: No Reported Reaction Past Psychological History: Anxiety, Depression Smoking Status: Current every day smoker Past Alcohol Use History: Occasional Past Drug Use History: None Reported - Past Family History Father Family Medical History: Hypertension General Exam - General Exam Comments Initial Comments: GENERAL Patient is well-developed and well-nourished. Patient is in mild distress. EYES Patient's pupils are equal and round. Extraocular motion is intact SKIN Unremarkable NEURO The patient is alert and oriented 3 PYSCH Patient has normal interpersonal interactions. MUSCULOSKELETAL Patient's right groin has a large area of ecchymosis and in the inguinal area there is a large hard tender area. Course Vital Signs 01/07/23 18:18 Pulse Rate 65 Respiratory 18 Rate Blood Pressure 152/68 O2 Sat by Pulse 98 Oximetry Medical Decision Making - Medical Decision Making Was pt. sent in by a medical professional or institution (Dr., PA, BEAUTY COUNSELOR, urgent care, hospital, or [place] health care facility...) When possible be specific @ -Patient was transferred to us from [facility] Did you speak to anyone other than the patient for history (EMS, parent, family, police, friend...)? What history was obtained from this source @ -Patient was sent to us by the ER doc and he gave us the history Did you review nursing and triage notes (agree or disagree)? Why? @ -[I reviewed and agree with nursing and triage notes] Were old charts reviewed (outside hosp., previous admission, EMS record, old EKG, old radiological studies, urgent care reports/EKG's, [place] health care facility records)? Report findings @ -I reviewed the chart from the other facility as well as the ultrasound results Differential Diagnosis (chest pain, altered mental status, abdominal pain women, abdominal pain men, vaginal bleeding, weakness, fever, dyspnea, syncope, headache, dizziness, GI bleed, back pain, seizure, CVA, palpatations, mental health, musculoskeletal)? @ -Hematoma, pseudoaneurysm, post catheterization ecchymosis this is not all inclusive list EKG interpreted by me (3pts min.). @ -[As above] X-rays interpreted by me (1pt min.). @ -[None done] CT interpreted by me (1pt min.). @ -[None done] U/S interpreted by me (1pt. min.). @ -[None done] What testing was considered but not performed or refused? (CT, X-rays, U/S, labs)? Why? @ -[None] What meds were considered but not given or refused? Why? @ -[None] Did you discuss the management of the patient with other professionals (milagro augustin i.eYuri Richardson, PA, BEAUTY COUNSELOR, lab, RT, psych nurse, social work lecturer, cyber systems engineer, teacher, dog license officer supervisor, telephonic nurse case manager)? Give summary @ -I spoke with some physicians he agreed to admit the patient. Was smoking cessation discussed for >3mins.? @ -[No] Was critical care preformed (if so, how long)? @ -[No] Were there social determinants of health that impacted care today? How? (Homelessness, low income, unemployed, alcoholism, drug addiction, transportation, low edu. Level, literacy, decrease access to med. care, residential, rehab)? @ -[No] Was there de-escalation of care discussed even if they declined (Discuss DNR or withdrawal of care, Hospice)? DNR status @ -[No] What co-morbidities impacted this encounter? (DM, HTN, Smoking, COPD, CAD, Cancer, CVA, ARF, Chemo, Hep., AIDS, mental health diagnosis, sleep apnea, mo rbid obesity)? @ -[None] Was patient admitted / discharged? Hospital course, mention meds given and route, prescriptions, significant lab abnormalities, going to OR and other pertinent info. @ -Patient has documentation to prove that the patient has a pseudoaneurysm. I spoke with some physicians agreed to admit the patient I consulted cardiology Undiagnosed new problem with uncertain prognosis? @ -[No] Drug Therapy requiring intensive monitoring for toxicity (Heparin, Nitro, Insu donald, Cardizem)? @ -[No] Were any procedures done? @ -[No] Diagnosis/symptom? @ -Pseudoaneurysm Acute, or Chronic, or Acute on Chronic? @ -Acute Uncomplicated (without systemic symptoms) or Complicated (systemic symptoms)? @ -Complicated Side effects of treatment? @ -[No] Exacerbation, Progression, or Severe Exacerbation? @ -[No] Poses a threat to life or bodily function? How? (Chest pain, [place], [place], pneumonia, PE, COPD, DKA, ARF, appy, cholecystitis, CVA, Diverticulitis, Homicidal, Suicidal, threat to staff... and all critical care pts) @ -[No] Disposition Clinical Impression: Pseudoaneurysm Disposition: ADMITTED IP TO THIS HOSP Referrals: Jordyn Barron DO [Primary Care Provider] - 1-2 days Time of Disposition: 18:59
[2023-01-07] MEDS ORDERED: HYDROcodone/APAP 7.5-325MG 1 EACH TAB PO PRN (23:56)
--- NOTE | 2023-01-07 23:58 | P.HPIM ---
History of Present Illness H&P Date: 01/07/23 Patient is a 67-year-old female with a PMH of COPD with chronic hypoxic respiratory failure on 2 L nasal cannula continuously at home, hypertension, and peripheral arterial disease who was transferred from [facility] where the patient had presented for right groin pain. The patient reports that she had undergone a left lower extremity procedure with access from the right groin on December 25. She reports that following the procedure, she developed gradually worsening pain and bruising over the right groin. She eventually underwent an ultrasound earlier today which was abnormal, at which point the patient attempted to contact Dr. Hines who advised the patient to go to the ED. The patient initially presented to [facility] and was ultimately transferred here. 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 She reports that the first week following the procedure, the bruising worsened and subsequently began improving over the last week. She reports that the pain is also improved, currently rated at a 3 out of 10 over the right groin. She denied experienced chest discomfort or shortness of breath. Also denied nausea, vomiting, abdominal pain, diarrhea. ED documentation reviewed and case discussed with ED provider. Review of systems: Pertinent positives and negatives as discussed in HPI, a complete review of systems was performed and all other systems are negative. Physical examination: Vital signs reviewed General: non toxic, no distress, appears at stated age, normal weight Derm: Right groin and thigh bruising and ecchymosis noted, warm Head: atraumatic, normocephalic, symmetric Eyes: EOMI, no lid lag, anicteric sclera, pupils equal round reactive to light ENT: Nose and ears atraumatic Neck: No cervical lymphadenopathy, trachea midline, supple Mouth: no lip lesion, mucus membranes moist Cardiovascular: S1S2 reg, no murmur, positive dorsalis pedis pulse bilateral, no edema Lungs: Mild wheezing appreciated, no rhonchi, no rales, no accessory muscle use Abdominal: soft, nontender to palpation, no guarding Ext: muscle strength 5 out of 5 in all 4 extremities grossly, no gross muscle atrophy, no contractures, Neuro: CN II-XI grossly intact, no gross focal neuro deficits Psych: Alert, oriented, appropriate affect Assessment: Right common femoral artery pseudoaneurysm Chronic conditions: Chronic hypoxic respiratory failure with COPD, hypertension, peripheral arterial disease Imaging: Ultrasound at [facility] of the right groin revealed a 2.9 x 2.1 x 1.7 cm pseudoaneurysm 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 Plan: Vascular surgery consulted Pain control Continue with home medications DVT prophylaxis: Heparin subq The patient is admitted with an anticipated greater than 2 midnight stay for evaluation of pseudoaneurysm CODE STATUS: Full Code Discussed with: Patient Anticipated discharge place: Home Past Medical History Past Medical History: Asthma, Chest Pain / Angina, Heart Failure, COPD, Deep Vein Thrombosis (DVT), Hyperlipidemia, Hypertension, Rheumatoid Arthritis (RA), Vascular Disorder History of Any Multi-Drug Resistant Organisms: None Reported Past Surgical History: Heart Catheterization, Tubal Ligation Additional Past Surgical History / Comment(s): titanium plate in right shoulder, left foot repair surgery, left ear surgery Past Anesthesia/Blood Transfusion Reactions: No Reported Reaction Past Psychological History: Anxiety, Depression Smoking Status: Current every day smoker Past Alcohol Use History: Occasional Past Drug Use History: None Reported - Past Family History Father Family Medical History: Hypertension Medications and Allergies Home Medications Medication Instructions Recorded Confirmed Type Albuterol Sulfate [Ventolin HFA] 2 puff INHALATION RT-Q4H PRN 11/10/19 01/07/23 History Budesonide/Formoterol Fumarate 2 puff INHALATION RT-BID 11/10/19 01/07/23 History [Symbicort 80-4.5 Mcg Inhaler] Isosorbide Mononitrate ER [Imdur] 30 mg PO DAILY 11/10/19 01/07/23 History Montelukast Sodium [Singulair] 10 mg PO HS 11/10/19 01/07/23 History atenoloL [Tenormin] 50 mg PO DAILY 11/10/19 01/07/23 History Aspirin EC [Ecotrin Low Dose] 81 mg PO DAILY 01/07/23 01/07/23 History Cetirizine HCl [Zyrtec] 10 mg PO DAILY 01/07/23 01/07/23 History Clopidogrel [Plavix] 75 mg PO DAILY 01/07/23 01/07/23 History FLUoxetine HCL [PROzac] 40 mg PO DAILY 01/07/23 01/07/23 History HYDROcodone/APAP 7.5-325MG [[place] 1 tab PO DAILY PRN 01/07/23 01/07/23 History 7.5-325] Ipratropium-Albuterol Nebulize 3 ml INHALATION RT-Q4H 01/07/23 01/07/23 History [Duoneb 0.5 mg-3 mg/3 ml Soln] Rosuvastatin [Crestor] 20 mg PO HS 01/07/23 01/07/23 History Tiotropium 2.5 Mcg/Puff [Spiriva 1 puff INHALATION RT-DAILY 01/07/23 01/07/23 History Respimat 2.5 Mcg] Triamterene-Hctz 37.5-25Mg 1 tab PO DAILY 01/07/23 01/07/23 History [Maxzide 37.5-25] Allergies Allergy/AdvReac Type Severity Reaction Status Date / Time No Known Allergies Allergy Verified 01/07/23 20:23 Physical Exam Vitals: Vital Signs Pulse Resp BP Pulse Ox 01/07/23 22:00 72 18 123/66 94 L 01/07/23 21:00 76 18 93 L 01/07/23 19:05 69 18 155/74 95 01/07/23 18:18 65 18 152/68 98 Intake and Output 01/07/23 01/07/23 01/08/23 14:59 22:59 06:59 Other: Weight 58.967 kg
[2023-01-08] MEDS: IPRATROPIUM-ALBUTEROL 3 ML NEB INHALATION SCH ×6 (00:06→21:34)
[2023-01-08 00:39] LABS: HCT 36.7 % (34.0-46.0); HGB 11.7 gm/dL (11.4-16.0); MCH 32.4 pg (25.0-35.0); MCHC 31.9 g/dL (31.0-37.0); MCV 101.5 fL (80.0-100.0); Macrocytosis Slight; Mean Platelet Volume 7.7; Platelet Count 338 k/uL (150-450); RBC 3.61 m/uL (3.80-5.40); RDW 14.4 % (11.5-15.5); WBC 6.8 k/uL (3.8-10.6)
[2023-01-08 00:45] LABS: INR 0.9 (<1.2); Partial Thromboplastin Time 22.5 sec (22.0-30.0); Prothrombin Time 9.6 sec (9.0-12.0)
[2023-01-08 00:52] LABS: African American GFR (CKD) 40 (>60 ml/min/1.73 sqM); Anion Gap 6 mmol/L; Blood Urea Nitrogen 34 mg/dL (7-17); Calcium 10.1 mg/dL (8.4-10.2); Carbon Dioxide 28 mmol/L (22-30); Chloride 101 mmol/L (98-107); Glucose 85 mg/dL (74-99); Non-African American GFR(CKD) 35 (>60 ml/min/1.73 sqM); Potassium 5.3 mmol/L (3.5-5.1); Sodium 135 mmol/L (137-145)
[2023-01-08] MEDS: HEPARIN SODIUM,PORCINE/PF 5,000 UNIT/0.5 ML SYRINGE SQ SCH ×3 (01:12→16:48)
[2023-01-08] MEDS: SYMBICORT 80-4.5 MCG INHALER INHALATION SCH ×2 (07:09→21:34)
--- NOTE | 2023-01-08 07:35 | P.CRDCN ---
History of Present Illness Consult date: 01/08/23 Chief complaint: Right groin discomfort History of present illness: The patient is a pleasant 67-year-old female patient was seen at [place] for lower extremity PAD as well as history of smoking who was seen in the office recently after percutaneous procedure was performed on the left lower extremity going from the right groin was performed recently at [place]. The patient was experiencing left groin discomfort and for that reason and because of bruit was quite noticeable at the right groin she was asked to undergo Doppler study. The Doppler study revealed pseudoaneurysm. The patient was initially admitted to the emergency department at [place] and subsequently she was transferred here. She reports no cardiac vascular symptoms at this point. Her main complaint continues to be right groin discomfort. But no pain in the chest and no shortness of breath and no dizziness or light of this and no presyncope or syncope. The examination is remarkable for bilateral expiratory wheezing and a bruit at the right groin. Assessment Right groin pseudoaneurysm PAD with prior revascularization Multiple comorbid conditions including history of smoking Plan The patient to be seen by the interventional radiology service for possible thrombin injection or compression of the ultrasound Continue the current medical regimen Follow-up with the patient Past Medical History Past Medical History: Asthma, Chest Pain / Angina, Heart Failure, COPD, Deep Vein Thrombosis (DVT), Hyperlipidemia, Hypertension, Rheumatoid Arthritis (RA), Vascular Disorder History of Any Multi-Drug Resistant Organisms: None Reported Past Surgical History: Heart Catheterization, Tubal Ligation Additional Past Surgical History / Comment(s): titanium plate in right shoulder, left foot repair surgery, left ear surgery Past Anesthesia/Blood Transfusion Reactions: No Reported Reaction Past Psychological History: Anxiety, Depression Smoking Status: Current every day smoker Past Alcohol Use History: Occasional Past Drug Use History: None Reported - Past Family History Father Family Medical History: Hypertension Medications and Allergies Home Medications Medication Instructions Recorded Confirmed Type Albuterol Sulfate [Ventolin HFA] 2 puff INHALATION RT-Q4H PRN 11/10/19 01/07/23 History Budesonide/Formoterol Fumarate 2 puff INHALATION RT-BID 11/10/19 01/07/23 History [Symbicort 80-4.5 Mcg Inhaler] Isosorbide Mononitrate ER [Imdur] 30 mg PO DAILY 11/10/19 01/07/23 History Montelukast Sodium [Singulair] 10 mg PO HS 11/10/19 01/07/23 History atenoloL [Tenormin] 50 mg PO DAILY 11/10/19 01/07/23 History Aspirin EC [Ecotrin Low Dose] 81 mg PO DAILY 01/07/23 01/07/23 History Cetirizine HCl [Zyrtec] 10 mg PO DAILY 01/07/23 01/07/23 History Clopidogrel [Plavix] 75 mg PO DAILY 01/07/23 01/07/23 History FLUoxetine HCL [PROzac] 40 mg PO DAILY 01/07/23 01/07/23 History HYDROcodone/APAP 7.5-325MG [[place] 1 tab PO DAILY PRN 01/07/23 01/07/23 History 7.5-325] Ipratropium-Albuterol Nebulize 3 ml INHALATION RT-Q4H 01/07/23 01/07/23 History [Duoneb 0.5 mg-3 mg/3 ml Soln] Rosuvastatin [Crestor] 20 mg PO HS 01/07/23 01/07/23 History Tiotropium 2.5 Mcg/Puff [Spiriva 1 puff INHALATION RT-DAILY 01/07/23 01/07/23 History Respimat 2.5 Mcg] Triamterene-Hctz 37.5-25Mg 1 tab PO DAILY 01/07/23 01/07/23 History [Maxzide 37.5-25] Allergies Allergy/AdvReac Type Severity Reaction Status Date / Time No Known Allergies Allergy Verified 01/07/23 20:23 Physical Exam Vitals: Vital Signs Temp Pulse Resp BP Pulse Ox 01/08/23 07:11 86 01/08/23 07:01 79 01/08/23 06:00 73 18 144/79 95 01/08/23 00:16 72 01/08/23 00:07 70 16 01/07/23 23:00 98.2 F 71 18 95 01/07/23 22:00 72 18 123/66 94 L 01/07/23 21:00 76 18 93 L 01/07/23 19:05 69 18 155/74 95 01/07/23 18:18 65 18 152/68 98 Intake and Output 01/07/23 01/08/23 01/08/23 22:59 06:59 14:59 Other: Weight 58.967 kg Results 01/08/23 00:04 01/08/23 00:04 Coagulation 01/08/23 Range/Units 00:04 PT 9.6 (9.0-12.0) sec APTT 22.5 (22.0-30.0) sec CBC 01/08/23 Range/Units 00:04 WBC 6.8 (3.8-10.6) k/uL RBC 3.61 L (3.80-5.40) m/uL Hgb 11.7 (11.4-16.0) gm/dL Hct 36.7 (34.0-46.0) % Plt Count 338 (150-450) k/uL Comprehensive Metabolic Panel 01/08/23 Range/Units 00:04 Sodium 135 L (137-145) mmol/L Potassium 5.3 H (3.5-5.1) mmol/L Chloride 101 (98-107) mmol/L Carbon Dioxide 28 (22-30) mmol/L BUN 34 H (7-17) mg/dL Creatinine 1.53 H (0.52-1.04) mg/dL Glucose 85 (74-99) mg/dL Calcium 10.1 (8.4-10.2) mg/dL Current Medications Generic Name Dose Route Start Last Admin Trade Name Freq PRN Reason Stop Dose Admin Hydrocodone Bitart/Acetaminophen 1 each 01/07/23 23:56 01/08/23 01:12 Hydrocodone/Apap 7.5-325mg 1 Each Tab PO 1 each DAILY PRN Administration Pain Albuterol/Ipratropium 3 ml 01/08/23 00:00 01/08/23 07:00 Ipratropium-Albuterol 3 Ml Neb INHALATION 3 ml RT-Q4H KYLIE Administration Aspirin 81 mg 01/08/23 09:00 Aspirin 81 Mg PO DAILY KYLIE Atenolol 50 mg 01/08/23 09:00 Atenolol 50 Mg Tab PO DAILY KYLIE Atorvastatin Calcium 40 mg 01/08/23 21:00 Atorvastatin 40 Mg Tab PO HS [facility] Budesonide/Formoterol Fumarate 2 puff 01/08/23 08:00 01/08/23 07:09 Symbicort 80-4.5 Mcg Inhaler INHALATION 2 puff RT-BID KYLIE Administration Clopidogrel Bisulfate 75 mg 01/08/23 09:00 Clopidogrel 75 Mg Tab PO DAILY KYLIE Fluoxetine HCl 40 mg 01/08/23 09:00 Fluoxetine Hcl 20 Mg Cap PO DAILY KYLIE Heparin Sodium (Porcine) 5,000 unit 01/08/23 00:00 01/08/23 01:12 Heparin Sodium,Porcine/Pf 5,000 Unit/0.5 Ml Syringe SQ 5,000 unit Q8HR KYLIE Administration Sodium Chloride 1,000 mls @ 75 mls/hr 01/07/23 19:00 01/07/23 20:30 Saline 0.9% IV 01/08/23 08:19 75 mls/hr .[id number] ONE Administration Isosorbide Mononitrate 30 mg 01/08/23 09:00 Isosorbide Mononitrate Er 30 Mg Tab.Er.24h PO DAILY KYLIE Loratadine 10 mg 01/08/23 09:00 Loratadine 10 Mg Tab PO DAILY KYLIE Montelukast Sodium 10 mg 01/08/23 21:00 Montelukast 10 Mg Tab PO HS [facility] Triamterene/Hydrochlorothiazide 1 each 01/08/23 09:00 Triamterene-Hctz 37.5-25mg 1 Each Tab PO DAILY [facility] Intake and Output 01/07/23 01/08/23 01/08/23 22:59 06:59 14:59 Other: Weight 58.967 kg 01/08/23 00:04 01/08/23 00:04
[2023-01-08] MEDS ORDERED: NON FORMULARY DRUG (Tiotropium 2.5 Mcg/Puff 10 PUFF Each) INHALATION SCH (08:00)
[2023-01-08] MEDS: LORATADINE 10 MG TAB PO SCH (08:17)
[2023-01-08] MEDS: ISOSORBIDE MONONITRATE ER 30 MG TAB.ER.24H PO SCH (08:17)
[2023-01-08] MEDS: ASPIRIN 81 MG PO SCH (08:18)
[2023-01-08] MEDS: FLUoxetine HCL 20 MG CAP PO SCH (08:18)
[2023-01-08] MEDS: CLOPIDOGREL 75 MG TAB PO SCH (08:18)
[2023-01-08] MEDS: atenoloL 50 MG TAB PO SCH (08:18)
[2023-01-08] MEDS ORDERED: TRIAMTERENE-HCTZ 37.5-25MG 1 EACH TAB PO SCH (09:00)
[2023-01-08] MEDS ORDERED: THROMBIN (BOVINE) 5,000 UNIT VIAL MISCELLANE ONE (10:00)
--- NOTE | 2023-01-08 11:32 | US ---
ULTRASOUND GUIDED RIGHT GROIN PSEUDOANEURYSM THROMBIN INJECTION: CLINICAL HISTORY: Postcatheterization right pseudoaneurysm FINDINGS: The procedure was explained to the patient. The risks, complications, benefits and alternatives were discussed and any questions were answered. Informed consent was obtained. Patient was placed supin e on the ultrasound table and prepped and draped in the usual sterile fashion. Utilizing a 25 gauge needle, 200 units of thrombin was injected under direct ultrasound guidance into the pseudoaneurysm a distance from the neck. There is complete thrombosis. Note is made that pulses were monitored throughout the procedure stable preprocedure, intraprocedure and post procedure. Repeat imaging demonstrated complete thrombosis of the pseudoaneurysm and wide pa tency of the common femoral artery. Patient was stable throughout the procedure. All elements of maximal barrier and sterile technique were utilized. IMPRESSION: 1. Successful ultrasound guided right groin pseudoaneurysm thrombin injection with complete thrombos is of the pseudoaneurysm post procedure.
[2023-01-08] MEDS ORDERED: MORPHINE SULFATE 4 MG/ML SYRINGE IVP STA (11:44)
--- NOTE | 2023-01-08 19:07 | P.PN ---
Subjective Progress Note Date: 01/08/23 Hospital course: Patient is a very pleasant 67-year-old female with a past medical history of COPD with chronic hypoxic respiratory failure on 2 L nasal cannula continuously at home, hypertension, and peripheral arterial disease. She was transferred to our facility on 01/07/23 from [facility] where she had presented earlier in the day with right groin pain status post recently undergoing a percutaneous procedure on the left lower extremity going from the right groin on 12/25/22. Patient reported since this procedure should gradually worsening pain and bruising due to uncontrolled pain and she went to the ER for evaluation. 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 Patient was transferred to our facility and admitted under our services with consultation to assembler bicycle. Physical examination: General: non toxic, no distress, appears at stated age Derm: warm, dry patient with significant bruising laterally from mid thigh and continuing upwards through hip, groin, and into abdomen/pelvis region.. Head: atraumatic, normocephalic, symmetric Eyes: EOMI, no lid lag, anicteric sclera Mouth: no lip lesion, mucus membranes moist Cardiovascular: S1S2 reg, no murmur, positive posterior tibial pulses bilaterally, Lungs: CTA bilateral, no rhonchi, no rales , no accessory muscle use Abdominal: soft, nontender to palpation, no guarding, no appreciable organomegaly Ext: no gross muscle atrophy, no edema, no contractures Neuro: CN II-XI grossly intact, no focal neuro deficits Psych: Alert, oriented, appropriate affect Assessment and plan of care: Right common femoral artery pseudoaneurysm Peripheral vascular disease Acute kidney injury Hyperkalemia likely secondary to acute kidney injury COPD with chronic hypoxic and hypercapnic respiratory failure Hypertension -Cardiology following and discussed plan of care assembler bicycle. Global Regulatory Lead consulted interventional radiology for evaluation for thrombin injection with compression of the ultrasound -Interventional radiology evaluated patient and took patient for thrombin injection this morning. -Continue symptomatic care and pain management. Order placed for [place] 7.5/09/05/2024 milligrams tablets every 4 hours as needed for moderate to severe pain. -Patient to continue with daily medication regimen with dual antiplatelet t herapy with aspirin 81 mg daily, Plavix 75 mg daily, and atorvastatin 40 mg nightly. -Patient also to continue with antihypertensive medication regimen with atenolol 50 mg daily -Order placed for neurovascular checks of right lower extremity every 4 hours. Labs reviewed and stable with CBC revealing hemoglobin 11.7 and platelet count of 338. Coagulation profile normal findings. BMP revealing slightly elevated potassium of 5.3, and elevated renal function with BUN of 34, creatinine 1.53, a nd GFR of 35. -Hold Maxide and continue with gentle IV fluid hydration with 0.9% normal saline at 75 mL's per hour. We will repeat a.m. labs to follow-up/monitor for improvement in renal function and resolution of hyperkalemia. -Order placed for repeat CBC, CMP, and magnesium with a.m. labs. We will follow-up with these results and place additional orders as needed based upon these findings. CODE STATUS: Full code DVT prophylaxis: Heparin Discussed with: Patient, assembler bicycle , and RN Anticipated discharge date: 24-[address]: Home Patient was seen independently by Nurse Practitioner. This document was prepared using [employer] dictation software. Please allow for errors in recruiting operations consultant while rare they do occur Santiago Treadwell NP rendered care for this patient independently, reviewed the findings and plan as documented in the note above. I did not physically speak with or examine the patient on this date. Objective - Vital Signs Vital signs: Vital Signs Temp 98.2 F 01/07/23 23:00 Pulse 79 01/08/23 08:15 Resp 18 01/08/23 08:15 BP 144/79 01/08/23 08:15 Pulse Ox 92 L 01/08/23 08:15 FiO2 Intake & Output 01/07/23 01/08/23 01/08/23 18:59 06:59 18:59 Weight 58.967 kg - Labs CBC & Chem 7: 01/09/23 08:02 01/09/23 08:02 Labs: Abnormal Lab Results - Last 24 Hours (Table) 01/08/23 01/08/23 Range/Units 00:04 00:04 RBC 3.61 L (3.80-5.40) m/uL MCV 101.5 H (80.0-100.0) fL Sodium 135 L (137-145) mmol/L Potassium 5.3 H (3.5-5.1) mmol/L BUN 34 H (7-17) mg/dL Creatinine 1.53 H (0.52-1.04) mg/dL
[2023-01-08] MEDS: SODIUM CHLORIDE 0.9% 1,000 ML IV SCH (20:04)
[2023-01-08] MEDS ORDERED: MONTELUKAST 10 MG TAB PO SCH (21:00)
[2023-01-08] MEDS ORDERED: ATORVASTATIN 40 MG TAB PO SCH (21:00)
[2023-01-08] MEDS: HYDROcodone/APAP 7.5-325MG 1 EACH TAB PO PRN (21:35)
[2023-01-09] MEDS: IPRATROPIUM-ALBUTEROL 3 ML NEB INHALATION SCH ×3 (00:30→08:15)
[2023-01-09] MEDS: HEPARIN SODIUM,PORCINE/PF 5,000 UNIT/0.5 ML SYRINGE SQ SCH ×2 (00:32→08:49)
[2023-01-09 05:47] VITALS: TEMP 98
--- NOTE | 2023-01-09 05:48 | P.PN ---
Subjective Progress Note Date: 01/09/23 Principal diagnosis: PAD The patient is a pleasant 67-year-old female patient was seen at [place] for lower extremity PAD as well as history of smoking who was seen in the office recently after percutaneous procedure was performed on the left lower extremity going from the right groin was performed recently at [place]. The patient was experiencing left groin discomfort and for that reason and because of bruit was quite noticeable at the right groin she was asked to undergo Doppler study. The Doppler study revealed pseudoaneurysm. The patient was initially admitted to the emergency department at [place] and subsequently she was transferred here. She reports no cardiac vascular symptoms at this point. Her main complaint continues to be right groin discomfort. But no pain in the chest and no shortness of breath and no dizziness or light of this and no presyncope or syncope. 01/09/2023 The patient was seen and evaluated today. She received thrombin injection yesterday by the interventional radiology. She is in process of having an ultrasound of the right groin and in the ultrasound showed no evidence of any residual pseudoaneurysm the patient potentially can be discharged later on today and I'll follow-up with her at [place]. The examination is remarkable for bilateral expiratory wheezing and a bruit at the right groin. Assessment Right groin pseudoaneurysm status post thrombin injection PAD with prior revascularization Multiple comorbid conditions including history of smoking Plan Continue the current medical regimen including dual antiplatelet therapy Follow-up with the ultrasound after thrombin injection Discharge home. There is no residual pseudoaneurysm Objective - Vital Signs Vital signs: Vital Signs Temp 98.0 F 01/09/23 04:00 Pulse 79 01/09/23 04:00 Resp 18 01/09/23 04:00 BP 150/82 01/09/23 04:00 Pulse Ox 96 01/09/23 04:00 FiO2 Intake & Output 01/08/23 01/08/23 01/09/23 06:59 18:59 06:59 Intake Total 10 Balance 10 Intake: IV 10 Invasive Line 1 10 Other: Voiding Method Toilet # Voids 1 - Labs CBC & Chem 7: 01/08/23 00:04 01/08/23 00:04
--- NOTE | 2023-01-09 08:08 | US ---
EXAMINATION TYPE: US lower ext pseudo artery RT DATE OF EXAM: 01/09/2023 COMPARISON: NONE CLINICAL INDICATION: Female, 67 years old with history of post pseudoaneurysm thrombin; POST THROMBIN INJECTION PSEUDO EXAM PERFORMED: Grayscale and color Doppler duplex imaging performed of the groin, post cardiac niall ter to assess for pseudoaneurysm. SIDE PERFORMED: RT Color and Waveform Doppler performed to assess for the presence of pseudoaneurysm; Is there ultrasound evidence of a pseudoaneurysm: NO Is there evidence of AV shunting: NO Is there a fluid collection present: Small hematoma again seen from original catheterization anterior to pseudoaneurysm site small amount of peripheral flow seen adjacent to pseudo, does not appear to be within capsule, may be hyperemic reaction IMPRESSION: No definitive flow within the pseudoaneurysm. Small amount of flow around prior pseudoaneurysm not fe lt to be within the pseudoaneurysm itself.
[2023-01-09] MEDS: SYMBICORT 80-4.5 MCG INHALER INHALATION SCH (08:15)
[2023-01-09 08:17] LABS: HCT 37.3 % (34.0-46.0); HGB 11.9 gm/dL (11.4-16.0); MCH 32.7 pg (25.0-35.0); MCV 102.1 fL (80.0-100.0); Macrocytosis Slight; Mean Platelet Volume 7.2; Platelet Count 329 k/uL (150-450); RBC 3.65 m/uL (3.80-5.40); RDW 14.1 % (11.5-15.5); WBC 6.2 k/uL (3.8-10.6)
--- NOTE | 2023-01-09 08:36 | P.DS ---
Providers Date of admission: 01/07/23 19:00 Expected date of discharge: 01/09/23 Attending physician: Jose Bains MD Consults: 01/07/23 19:00 Consult Physician Urgent Consulting Provider: [facility] Consult Reason/Comments: Pseudoaneurysm Do you want consulting provider notified?: Yes Primary care physician: Jordyn Barron DO Hospital Course: Discharge Diagnosis: Right common femoral artery pseudoaneurysm Peripheral vascular disease Acute kidney injury, improved Hyperkalemia likely secondary to acute kidney injury, resolved COPD with chronic hypoxic and hypercapnic respiratory failure Hypertension Hospital Course: Patient is a very pleasant 67-year-old female with a past medical history of COPD with chronic hypoxic respiratory failure on 2 L nasal cannula continuously at home, hypertension, and peripheral arterial disease. She was transferred to our facility on 01/07/23 from [facility] where she had presented earlier in the day with right groin pain status post recently undergoing a percutaneous procedure on the left lower extremity going from the right groin on 12/25/22. Patient reported since this procedure should gradually worsening pain and bruising due to uncontrolled pain and she went to the ER for evaluation. 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 Patient was transferred to our facility and admitted under our services with consultation to jig bore tool maker. Patient was evaluated by jig bore tool maker and entertainment & media correspondent. Patient underwent thrombin injection to femoral artery pseudoaneurysm and duplex ultrasound repeated showing no residual pseudoaneurysm upon review by jig bore tool maker. Cardiology recommending outpatient follow-up with our office in clearing patient from cardiac perspective for discharge home. Morning labs reviewed showing a stable hemoglobin of 11.9 and improvement of renal function with BUN of 25, creatinine of 1.23, and GFR 45. Vital signs unremarkable. Patient denies having any chest pain, shortness of breath, dizziness/lightheadedness, or experiencing any numbness/tingling/weakness in her extremities. Medically, patient is stable for discharge at this time. No medication changes were made this admission. Physical examination: General: non toxic, no distress, appears at stated age Derm: warm, dry patient with significant bruising laterally from mid thigh and continuing upwards through hip, groin, and into abdomen/pelvis region.. Head: atraumatic, normocephalic, symmetric Eyes: EOMI, no lid lag, anicteric sclera Mouth: no lip lesion, mucus membranes moist Cardiovascular: S1S2 reg, no murmur, positive posterior tibial pulses bilaterally, Lungs: CTA bilateral, no rhonchi, no rales , no accessory muscle use Abdominal: soft, nontender to palpation, no guarding, no appreciable organomegaly Ext: no gross muscle atrophy, no edema, no contractures Neuro: CN II-XI grossly intact, no focal neuro deficits Psych: Alert, oriented, appropriate affect A total of 31 minutes of time were spent preparing this complex discharge summary. Pt was discharged on 01/09/23 8:31 AM Patient was seen independently by Nurse Practitioner. This document was prepared using [employer] dictation software. Please allow for errors in demurrage clerk while rare they do occur. Santiago Treadwell NP rendered care for this patient independently, reviewed the findings and plan as documented in the note above. I did not physically speak with or examine the patient on this date. Patient Condition at Discharge: Stable Plan - Discharge Summary New Discharge Prescriptions: Continue Montelukast Sodium [Singulair] 10 mg PO HS Budesonide/Formoterol Fumarate [Symbicort 80-4.5 Mcg Inhaler] 2 puff INHALA TION RT-BID Albuterol Sulfate [Ventolin HFA] 2 puff INHALATION RT-Q4H PRN PRN Reason: Shortness Of Breath Isosorbide Mononitrate ER [Imdur] 30 mg PO DAILY atenoloL [Tenormin] 50 mg PO DAILY Cetirizine HCl [Zyrtec] 10 mg PO DAILY FLUoxetine HCL [PROzac] 40 mg PO DAILY HYDROcodone/APAP 7.5-325MG [[place] 7.5-325] 1 tab PO DAILY PRN PRN Reason: Pain Aspirin EC [Ecotrin Low Dose] 81 mg PO DAILY Clopidogrel [Plavix] 75 mg PO DAILY Rosuvastatin [Crestor] 20 mg PO HS Tiotropium 2.5 Mcg/Puff [Spiriva Respimat 2.5 Mcg] 1 puff INHALATION RT-DAILY Triamterene-Hctz 37.5-25Mg [Maxzide 37.5-25] 1 tab PO DAILY Ipratropium-Albuterol Nebulize [Duoneb 0.5 mg-3 mg/3 ml Soln] 3 ml INHALATION RT-Q4H Discharge Medication List Albuterol Sulfate [Ventolin HFA] 2 puff INHALATION RT-Q4H PRN 11/10/19 [History] Budesonide/Formoterol Fumarate [Symbicort 80-4.5 Mcg Inhaler] 2 puff INHALATION RT-BID 11/10/19 [History] Isosorbide Mononitrate ER [Imdur] 30 mg PO DAILY 11/10/19 [History] Montelukast Sodium [Singulair] 10 mg PO HS 11/10/19 [History] atenoloL [Tenormin] 50 mg PO DAILY 11/10/19 [History] Aspirin EC [Ecotrin Low Dose] 81 mg PO DAILY 01/07/23 [History] Cetirizine HCl [Zyrtec] 10 mg PO DAILY 01/07/23 [History] Clopidogrel [Plavix] 75 mg PO DAILY 01/07/23 [History] FLUoxetine HCL [PROzac] 40 mg PO DAILY 01/07/23 [History] HYDROcodone/APAP 7.5-325MG [[place] 7.5-325] 1 tab PO DAILY PRN 01/07/23 [History] Ipratropium-Albuterol Nebulize [Duoneb 0.5 mg-3 mg/3 ml Soln] 3 ml INHALATION RT-Q4H 01/07/23 [History] Rosuvastatin [Crestor] 20 mg PO HS 01/07/23 [History] Tiotropium 2.5 Mcg/Puff [Spiriva Respimat 2.5 Mcg] 1 puff INHALATION RT-DAILY 01/07/23 [History] Triamterene-Hctz 37.5-25Mg [Maxzide 37.5-25] 1 tab PO DAILY 01/07/23 [History] Follow up Appointment(s)/Referral(s): Judson Hines MD [STAFF PHYSICIAN] - 1 Week Jordyn Barron DO [Primary Care Provider] - 01/12/23 2:20 pm Patient Instructions/Handouts: Pseudoaneurysm (GEN) Activity/Diet/Wound Care/Special Instructions: Activity: As tolerated. Take breaks as needed. Diet: Heart healthy and carb consistent diet. Avoid salts, or foods with hidden salts such as canned or boxed foods and frozen dinners. Extra salt makes your heart work harder and traps the fluid in your body for longer. Special Instructions: Take all of your medications as directed and remember to keep all of your doctor's appointments and follow-up as needed. Thank you for allowing us to participate in your care, it was truly a pleasure having you for our patient!!! Discharge Disposition: HOME SELF-CARE
[2023-01-09] MEDS: ISOSORBIDE MONONITRATE ER 30 MG TAB.ER.24H PO SCH (08:48)
[2023-01-09] MEDS: LORATADINE 10 MG TAB PO SCH (08:48)
[2023-01-09] MEDS: FLUoxetine HCL 20 MG CAP PO SCH (08:48)
[2023-01-09] MEDS: SODIUM CHLORIDE 0.9% 1,000 ML IV SCH (08:49)
[2023-01-09] MEDS: ASPIRIN 81 MG PO SCH (08:49)
[2023-01-09] MEDS: CLOPIDOGREL 75 MG TAB PO SCH (08:49)
[2023-01-09] MEDS: atenoloL 50 MG TAB PO SCH (08:49)
[2023-01-09 08:51] LABS: ALT 18 U/L (4-34); AST 26 U/L (14-36); African American GFR (CKD) 52 (>60 ml/min/1.73 sqM); Albumin 3.7 g/dL (3.5-5.0); Alkaline Phosphatase 69 U/L (38-126); Anion Gap 8 mmol/L; Blood Urea Nitrogen 29 mg/dL (7-17); Calcium 9.6 mg/dL (8.4-10.2); Carbon Dioxide 24 mmol/L (22-30); Chloride 103 mmol/L (98-107); Glucose 102 mg/dL (74-99); Magnesium 1.9 mg/dL (1.6-2.3); Non-African American GFR(CKD) 45 (>60 ml/min/1.73 sqM); Potassium 4.5 mmol/L (3.5-5.1); Sodium 135 mmol/L (137-145); Total Bilirubin 0.6 mg/dL (0.2-1.3); Total Protein 6.4 g/dL (6.3-8.2)
[2023-01-09 11:05] VITALS: BP 128/63; PULSE 82; RESP 16
[2023-01-09] MEDS: HYDROcodone/APAP 7.5-325MG 1 EACH TAB PO PRN (11:10)
== END 2023-01-09 11:16 | disposition home or self-care (01) | DRG 300 ==
LOC: EC 18:16 → 4SSUR 19:00 → 3SCARD 19:48
PROVIDERS: ADMIT Student in an Organized Health Care Education/Training Program; ATTEND Student in an Organized Health Care Education/Training Program
PROC: 3E053GC Introduction of Other Therapeutic Substance into Peripheral Artery, Percutaneous Approach (ICD-10-PCS; principal; 2023-01-07)
PROC: B44FZZ3 Ultrasonography of Right Lower Extremity Arteries, Intravascular (ICD-10-PCS; 2023-01-07)
DX: I72.4 Aneurysm of artery of lower extremity (principal); J96.11 Chronic respiratory failure with hypoxia; J98.11 Atelectasis; N17.9 Acute kidney failure, unspecified; J96.12 Chronic respiratory failure with hypercapnia; E11.51 Type 2 diabetes mellitus with diabetic peripheral angiopathy without gangrene; E87.5 Hyperkalemia; J44.9 Chronic obstructive pulmonary disease, unspecified; E78.5 Hyperlipidemia, unspecified; M06.9 Rheumatoid arthritis, unspecified; Z86.718 Personal history of other venous thrombosis and embolism; F17.210 Nicotine dependence, cigarettes, uncomplicated; F32.A Depression, unspecified; F41.9 Anxiety disorder, unspecified; I50.9 Heart failure, unspecified; I11.0 Hypertensive heart disease with heart failure; Z79.02 Long term (current) use of antithrombotics/antiplatelets; Z79.51 Long term (current) use of inhaled steroids; Z79.82 Long term (current) use of aspirin; Z79.899 Other long term (current) drug therapy; Z82.49 Family history of ischemic heart disease and other diseases of the circulatory system; Z98.51 Tubal ligation status
CPT/HCPCS: 36002; 80048; 80053; 83735; 85027; 85610; 85730; 93975; 94640; 96361; 96372; 96374; 99285

== ENCOUNTER 2023-03-04 08:40 | Day surgery (SDC) | payer MEDICARE, OTHER ==
[~2023-03-04 08:40] MED LIST: ALPRAZolam 0.25 MG TAB PO PRN; ASPIRIN 325 MG TAB PO PRN; HEPARIN SODIUM,PORCINE (1 ML) 2,500 UNIT in SODIUM CHLORIDE 0.9% 250 ML IRRIGATION PRN; HEPARIN SODIUM,PORCINE 10,000 UNIT in SODIUM CHLORIDE 0.9% 1,000 ML IRRIGATION PRN; SODIUM CHLORIDE 0.9% 1,000 ML in EMPTY BAG 1 BAG IV ONE; ZOLPIDEM 5 MG TAB PO PRN
[2023-03-04 09:48] LABS: Basophils % (A) 0 %; Eosinophils % (A) 0 %; HCT 42.9 % (34.0-46.0); Lymphocytes # (A) 1.9 k/uL (1.0-4.8); Lymphocytes % (A) 25 %; MCH 32.5 pg (25.0-35.0); MCHC 32.7 g/dL (31.0-37.0); MCV 99.1 fL (80.0-100.0); Mean Platelet Volume 7.3; Monocytes # (A) 0.4 k/uL (0-1.0); Monocytes % (A) 5 %; Neutrophils # (A) 5.3 k/uL (1.3-7.7); Neutrophils % (A) 69 %; Platelet Count 438 k/uL (150-450); RBC 4.32 m/uL (3.80-5.40); RDW 14.1 % (11.5-15.5); WBC 7.6 k/uL (3.8-10.6)
[2023-03-04 09:57] LABS: African American GFR (CKD) 55 (>60 ml/min/1.73 sqM); Anion Gap 10 mmol/L; Blood Urea Nitrogen 26 mg/dL (7-17); Calcium 10.3 mg/dL (8.4-10.2); Carbon Dioxide 25 mmol/L (22-30); Chloride 99 mmol/L (98-107); Glucose 115 mg/dL (74-99); Non-African American GFR(CKD) 48 (>60 ml/min/1.73 sqM); Potassium 4.4 mmol/L (3.5-5.1); Sodium 134 mmol/L (137-145)
[2023-03-04] MEDS ORDERED: IV FLUID CONTINUATION 1,000 ML IV ONE (10:02)
[2023-03-04] MEDS ORDERED: MIDAZOLAM 2 MG/2 ML VIAL IVP ONE (10:12)
[2023-03-04] MEDS ORDERED: LIDOCAINE 1% INJ 10MG/ML (20 ML MDV) SQ ONE (10:19)
[2023-03-04] MEDS: MIDAZOLAM 2 MG/2 ML VIAL IVP ONE ×4 (10:20→12:42)
[2023-03-04] MEDS: fentaNYL (PF) 50 MCG/ML 2 ML AMP IVP ONE ×2 (10:23→11:07)
[2023-03-04] MEDS: HEPARIN SODIUM 1,000 UN/ML (10ML VL) IV ONE ×4 (10:27→13:23)
[2023-03-04] MEDS ORDERED: SODIUM CHLORIDE 0.9% 500 ML 500 ML with niCARdipine 6.25 MG, NITROGLYCERIN-D5W PMX 0.05... IV ONE ×8 (10:42→13:00)
[2023-03-04] MEDS ORDERED: HYDROmorphone 0.5 MG/0.5 ML SYRINGE IVP ONE ×2 (11:28→12:07)
[2023-03-04] MEDS: NITROGLYCERIN 1000MCG/10ML SYRINGE INTRAARTER ONE ×2 (13:23→13:36)
[2023-03-04] MEDS ORDERED: niCARdipine Syringe (1,000 mcg/10 mL) INTRAARTER ONE (13:23)
[2023-03-04] MEDS ORDERED: IOPAMIDOL-250 100ML BTL INTRAARTER ONE ×2 (13:27→13:40)
[2023-03-04] MEDS ORDERED: HYDROcodone/APAP 7.5-325MG 1 EACH TAB PO PRN ×2 (13:53→22:04)
[2023-03-04] MEDS ORDERED: ALBUTEROL NEBULIZED 2.5 MG/3 ML INHALATION PRN (13:53)
[2023-03-04] MEDS ORDERED: RX INFO: IV CONTRAST WAS GIVEN 1 EACH MISC MISCELLANE PRN (13:54)
[2023-03-04] MEDS ORDERED: NITROGLYCERIN SL TABS 0.4 MG TAB SUBLINGUAL PRN (13:54)
[2023-03-04] MEDS ORDERED: MAG HYDROX/AL HYDROX/SIMETH 30 ML CUP PO PRN (13:54)
[2023-03-04] MEDS ORDERED: ATROPINE SULFATE 0.1 MG/ML 10ML SYRINGE IV PRN (13:54)
[2023-03-04] MEDS ORDERED: ZOLPIDEM 5 MG TAB PO PRN (13:54)
[2023-03-04] MEDS ORDERED: SODIUM CHLORIDE 0.9% 1,000 ML in EMPTY BAG 1 BAG IV SCH (14:00)
--- NOTE | 2023-03-04 14:33 | IR ---
EXAMINATION TYPE: IR stent intravas non coronary DATE OF EXAM: 03/04/2023 COMPARISON: NONE HISTORY: Fluoroscopy time. Fluoroscopy was provided to the referring clinician.
[2023-03-04] MEDS: IPRATROPIUM-ALBUTEROL 3 ML NEB INHALATION SCH ×2 (15:47→19:55)
--- NOTE | 2023-03-04 18:48 | P.PCN ---
Date of Procedure: 03/04/23 Operative Findings: PERCUTANEOUS PERIPHERAL INTERVENTION Performing physician Judson Hines M.D. Procedure performed 1. Successful balloon angioplasty and stenting of the right SFA 2. Successful balloon angioplasty of the right anterior tibial artery 3. Adjunctive use of atherectomy and intravascular ultrasound 4. Right lower extremity angiogram and left common femoral artery angiogram 5. Ultrasound guided access of the left common femoral artery and the right anterior tibial artery Indication Severe intermittent claudication has been interfering with the patient's activity beach she is known to have severe PAD with occluded right SFA. She was brought today to undergo a REFERENCE TEST CLERK of the right SFA Approach Left common femoral artery and right anterior tibial artery Complications None Level of sedation Moderate with a sedation time of 3 hours Procedure description After obtaining an informed consent the patient was brought to the cardiac photonic laboratory technician. The left common femoral artery was cannulated using micropuncture technique under ultrasound guidance and the micropuncture wire passed easily then I placed initially a 6-Nicaraguan short sheath and subsequently a 6-Nicaraguan 70 cm sheath at the right common femoral artery. At that point anticoagulation was initiated using heparin with continuous ACT monitoring. Subsequently I did go up and over to the right common femoral artery using 5-Nicaraguan rim dilator and 035 stiff glide wire. Subsequently the sheath was advanced over the wire and dilator to the right common femoral artery. At that point right lower extremity angiogram was performed and showed one vessel run off below the knee on the right side with peroneal artery with occluded anterior tibial and posterior tibial artery. Attempting crossing the chronic total occlusion in antegrade technique coming from above was unsuccessful using multiple wires including 014 wire and 018 wire and 035 wire. I decided to axis the right anterior tibial artery and try to cross the chronic total occlusion in retrograde technique. I accessed the right anterior tibial artery and I placed a slender 5/6-Nicaraguan at the right anterior tibial artery. Subsequently the SideArm of the sheath was connected into a cocktail containing heparin and verapamil and nitroglycerin. Attempting advancing the micropuncture wire through the 18 was unsuccessful. Finally I was able to cross the chronic total occlusion of the right anterior tibial artery using an 018 Pham the wire. The wire was advanced all the way to the right SFA. After that attempting crossing the CT of the right SFA in retrograde technique was also unsuccessful. I tried again to cross the COW TENDER in antegrade technique and I was able to. At that point I placed an an 014 wire and I did intravascular ultrasound of the right SFA from above and intravascular ultrasound of the right anterior tibial artery from below. The SFA diameter was around 5 mm. The anterior tibial diameter was about 3 mm. I was in the true lumen all the way. For that reason I decided to do atherectomy using the Hawk 1 device with extraction of significant amount of plaque. After that balloon angioplasty of the right SFA from above was performed using 5 mm balloon. An angiogram showed inadequate angiographic results at the proximal and mid right SFA but good angiographic results in the distal right SFA. I decided to stent the proximal and mid right SFA using 7.0 x 140 and 7.0 x 60 mm Zilver PTX the coated stents. The stents were deployed under fluoroscopy guidance. The distal right SFA was treated using a drug-coated balloon with a good and adequate angiographic results and [id number] dissection. After that I did balloon the anterior tibial artery using 3 mm balloon. Final angiogram was performed and showed excellent angiographic results and the procedure was completed was no complication. Subsequently the pedal sheath was pulled out and the femoral sheath was exchanged over 035 wire into a short 11 cm sheath. The procedure was completed with no complication. Postprocedure management 1. Dual antiplatelet therapy 2. Aggressive cholesterol control 3. Risk factors modification 4. Follow-up with the patient
[2023-03-04] MEDS: SYMBICORT 80-4.5 MCG INHALER INHALATION SCH (19:55)
[2023-03-04] MEDS ORDERED: ATORVASTATIN 40 MG TAB PO SCH (21:00)
[2023-03-04] MEDS ORDERED: MONTELUKAST 10 MG TAB PO SCH (21:00)
[2023-03-05] MEDS: IPRATROPIUM-ALBUTEROL 3 ML NEB INHALATION SCH ×3 (00:01→08:41)
[2023-03-05] MEDS ORDERED: ACETAMINOPHEN TAB 325 MG TAB PO PRN (00:13)
[2023-03-05] MEDS ORDERED: NON FORMULARY DRUG (Tiotropium 2.5 Mcg/Puff 10 PUFF Each) INHALATION SCH (08:00)
[2023-03-05] MEDS: SYMBICORT 80-4.5 MCG INHALER INHALATION SCH (08:41)
[2023-03-05] MEDS ORDERED: ASPIRIN 81 MG PO SCH (09:00)
[2023-03-05] MEDS ORDERED: CLOPIDOGREL 75 MG TAB PO SCH (09:00)
[2023-03-05] MEDS ORDERED: ISOSORBIDE MONONITRATE ER 30 MG TAB.ER.24H PO SCH (09:00)
[2023-03-05] MEDS ORDERED: FLUoxetine HCL 20 MG CAP PO SCH (09:00)
[2023-03-05] MEDS ORDERED: TRIAMTERENE-HCTZ 37.5-25MG 1 EACH TAB PO SCH (09:00)
[2023-03-05] MEDS ORDERED: atenoloL 50 MG TAB PO SCH (09:00)
[2023-03-05] MEDS ORDERED: LORATADINE 10 MG TAB PO SCH (09:00)
[2023-03-05 09:06] LABS: African American GFR (CKD) 81 (>60 ml/min/1.73 sqM); Non-African American GFR(CKD) 70 (>60 ml/min/1.73 sqM)
--- NOTE | 2023-03-05 09:46 | P.DS ---
Providers Attending physician: Judson Hines Consults: 03/04/23 13:56 Consult Physician Routine Consulting Provider: [facility] Consult Reason/Comments: Post Interventional Patient Do you want consulting provider notified?: Already Contacted Primary care physician: Jordyn Barron DO Hospital Course: The patient is a pleasant 67-year-old female patient with known lower extremities peripheral arterial disease was admitted to the hospital yesterday and underwent successful recanalizing chronically occluded right SFA with a very long and extensive procedure was performed in antegrade and retrograde technique from left common femoral approach and right anterior tibial approach She was seen this morning. Both sides appeared to be soft and nontender was no pauses. I was able to feel faint pulse in the right anterior tibial artery. The patient is asymptomatic and stable hemodynamically. The patient is going to be discharged home on dual antiplatelet therapy and I'll follow-up with the patient next week in the office Plan - Discharge Summary Discharge Rx Participant: No New Discharge Prescriptions: Continue Montelukast Sodium [Singulair] 10 mg PO HS Budesonide/Formoterol Fumarate [Symbicort 80-4.5 Mcg Inhaler] 2 puff INHALATION RT-BID Albuterol Sulfate [Ventolin HFA] 2 puff INHALATION RT-Q4H PRN PRN Reason: Shortness Of Breath Isosorbide Mononitrate ER [Imdur] 30 mg PO DAILY atenoloL [Tenormin] 50 mg PO DAILY Cetirizine HCl [Zyrtec] 10 mg PO DAILY FLUoxetine HCL [PROzac] 40 mg PO DAILY HYDROcodone/APAP 7.5-325MG [[place] 7.5-325] 2 tab PO DAILY PRN PRN Reason: Pain Alendronate Sodium [Fosamax] 70 mg PO SA Aspirin EC [Ecotrin Low Dose] 81 mg PO DAILY Clopidogrel [Plavix] 75 mg PO DAILY Rosuvastatin [Crestor] 20 mg PO HS Tiotropium 2.5 Mcg/Puff [Spiriva Respimat 2.5 Mcg] 1 puff INHALATION RT-DAILY Triamterene-Hctz 37.5-25Mg [Maxzide 37.5-25] 2 tab PO DAILY Ipratropium-Albuterol Nebulize [Duoneb 0.5 mg-3 mg/3 ml Soln] 3 ml INHALATION RT-Q4H Discharge Medication List Albuterol Sulfate [Ventolin HFA] 2 puff INHALATION RT-Q4H PRN 11/10/19 [History] Budesonide/Formoterol Fumarate [Symbicort 80-4.5 Mcg Inhaler] 2 puff INHALATION RT-BID 11/10/19 [History] Isosorbide Mononitrate ER [Imdur] 30 mg PO DAILY 11/10/19 [History] Montelukast Sodium [Singulair] 10 mg PO HS 11/10/19 [History] atenoloL [Tenormin] 50 mg PO DAILY 11/10/19 [History] Aspirin EC [Ecotrin Low Dose] 81 mg PO DAILY 01/07/23 [History] Cetirizine HCl [Zyrtec] 10 mg PO DAILY 01/07/23 [History] Clopidogrel [Plavix] 75 mg PO DAILY 01/07/23 [History] FLUoxetine HCL [PROzac] 40 mg PO DAILY 01/07/23 [History] HYDROcodone/APAP 7.5-325MG [[place] 7.5-325] 2 tab PO DAILY PRN 01/07/23 [History] Ipratropium-Albuterol Nebulize [Duoneb 0.5 mg-3 mg/3 ml Soln] 3 ml INHALATION RT-Q4H 01/07/23 [History] Rosuvastatin [Crestor] 20 mg PO HS 01/07/23 [History] Tiotropium 2.5 Mcg/Puff [Spiriva Respimat 2.5 Mcg] 1 puff INHALATION RT-DAILY 01/07/23 [History] Triamterene-Hctz 37.5-25Mg [Maxzide 37.5-25] 2 tab PO DAILY 01/07/23 [History] Alendronate Sodium [Fosamax] 70 mg PO SA 02/26/23 [History] Follow up Appointment(s)/Referral(s): Judson Hines MD [STAFF PHYSICIAN] - 1 Week (THE OFFICE WILL CALL YOU WITH AN APPOINTMENT DATE AND TIME) Patient Instructions/Handouts: Peripheral Vascular Disease (ED), Peripheral Artery Disease (ED), Moderate Sedation (ED), Peripheral Vascular Stent Placement (DC) Activity/Diet/Wound Care/Special Instructions: *NO LIFTING, PUSHING, OR PULLING ANYTHING OVER 5 POUNDS FOR 5 DAYS *NO DRIVING FOR 3 DAYS *YOU CAN REMOVE YOUR DRESSING AND SHOWER TOMORROW BUT DO NOT SUBMERSE YOUR PUNCTURE SITE IN WATER FOR A FEW DAYS TO PREVENT INFECTION - SO NO TUB BATHS, POOLS, HOT TUBS, DISHES....ETC *ANY SIGNS OF BLEEDING (HARDNESS, SWELLING, OR EXCESSIVE BRUISING) HOLD DIRECT PRESSURE ON YOUR PUNCTURE SITE AND COME TO THE NEAREST EMERGENCY ROOM TO GET YOUR PUNCTURE SITE LOOKED AT - DO NOT DRIVE YOURSELF! EITHER CALL EMS OR HAVE SOMEONE DRIVE YOU
[2023-03-05 10:33] VITALS: BP 134/67; PULSE 99; RESP 18; TEMP 98.5
[2023-03-07] MEDS ORDERED: NON FORMULARY DRUG (Alendronate Sodium [Fosamax] 70 MG Tablet) PO SCH (13:53)
== END 2023-03-05 11:31 | disposition home or self-care (01) ==
LOC: CATHCVL 08:40 → 3SCARD 14:02 → CATHCVL 03-05 11:31
PROVIDERS: ATTEND Internal Medicine Interventional Cardiology
DX: I70.211 Atherosclerosis of native arteries of extremities with intermittent claudication, right leg (principal); Z79.899 Other long term (current) drug therapy; Z79.82 Long term (current) use of aspirin; I10 Essential (primary) hypertension; Z82.49 Family history of ischemic heart disease and other diseases of the circulatory system
CPT/HCPCS: 37228; 94640 ×4; 37227; 37252; 37253; 80048; 82565; 85025; C1894 ×2; C1769 ×6; C1725; C1714; C1753; C1874 ×2; C2623; J2250; J2001; J3010; J1644; J1170; Q9966; J2305; 76937

== ENCOUNTER 2023-04-30 10:06 | Observation (INO) | payer MEDICARE, OTHER ==
--- NOTE | 2023-04-30 10:31 | ED ---
General Adult HPI - General Stated complaint: CHEST PAIN Time Seen by Provider: 04/30/23 10:12 Source: patient, RN/MD (Case was discussed with transferring physician), RN notes reviewed, old records reviewed Mode of arrival: EMS Limitations: no limitations - History of Present Illness Initial comments: Patient is a pleasant 67-year-old female presenting to the emergency department for chest discomfort. Onset of symptoms was last day or 2. Patient does have previous cardiac history. Patient was seen at [facility] and transferred here. Patient reportedly has been here previously and does see Dr. Hines. Patient does drink alcohol frequently. Patient had reported negative troponin and computed tomography scan of the chest without pulmonary embolism. Patient states she is still having discomfort however mild. - Related Data Home Medications Medication Instructions Recorded Confirmed Albuterol Sulfate [Ventolin HFA] 2 puff INHALATION RT-Q4H PRN 11/10/19 03/04/23 Budesonide/Formoterol Fumarate 2 puff INHALATION RT-BID 11/10/19 03/04/23 [Symbicort 80-4.5 Mcg Inhaler] Isosorbide Mononitrate ER [Imdur] 30 mg PO DAILY 11/10/19 03/04/23 Montelukast Sodium [Singulair] 10 mg PO HS 11/10/19 03/04/23 atenoloL [Tenormin] 50 mg PO DAILY 11/10/19 03/04/23 Aspirin EC [Ecotrin Low Dose] 81 mg PO DAILY 01/07/23 03/04/23 Cetirizine HCl [Zyrtec] 10 mg PO DAILY 01/07/23 03/04/23 Clopidogrel [Plavix] 75 mg PO DAILY 01/07/23 03/04/23 FLUoxetine HCL [PROzac] 40 mg PO DAILY 01/07/23 03/04/23 HYDROcodone/APAP 7.5-325MG [[place] 2 tab PO DAILY PRN 01/07/23 03/04/23 7.5-325] Ipratropium-Albuterol Nebulize 3 ml INHALATION RT-Q4H 01/07/23 03/04/23 [Duoneb 0.5 mg-3 mg/3 ml Soln] Rosuvastatin [Crestor] 20 mg PO HS 01/07/23 03/04/23 Tiotropium 2.5 Mcg/Puff [Spiriva 1 puff INHALATION RT-DAILY 01/07/23 03/04/23 Respimat 2.5 Mcg] Triamterene-Hctz 37.5-25Mg 2 tab PO DAILY 01/07/23 03/04/23 [Maxzide 37.5-25] Alendronate Sodium [Fosamax] 70 mg PO SA 02/26/23 03/04/23 Allergies Allergy/AdvReac Type Severity Reaction Status Date / Time No Known Allergies Allergy Verified 04/30/23 10:34 Review of Systems ROS Statement: Those systems with pertinent positive or pertinent negative responses have been documented in the HPI. ROS Other: All systems not noted in ROS Statement are negative. Constitutional: Denies: fever Eyes: Denies: eye pain ENT: Denies: ear pain Respiratory: Reports: wheezes (Patient states she ran out of her inhaler). Denies: dyspnea Cardiovascular: Reports: as per HPI, chest pain Gastrointestinal: Denies: abdominal pain Genitourinary: Denies: dysuria Musculoskeletal: Denies: back pain Skin: Denies: rash Neurological: Denies: weakness Past Medical History Past Medical History: Asthma, Chest Pain / Angina, Heart Failure, COPD, Deep Vein Thrombosis (DVT), Hyperlipidemia, Hypertension, Rheumatoid Arthritis (RA), Vascular Disorder Additional Past Medical History / Comment(s): dvt rt leg History of Any Multi-Drug Resistant Organisms: None Reported Past Surgical History: Heart Catheterization, Tubal Ligation Additional Past Surgical History / Comment(s): titanium plate in right shoulder, left foot repair surgery, left ear surgery,lft fem pop ballooning Past Anesthesia/Blood Transfusion Reactions: No Reported Reaction Smoking Status: Current every day smoker - Past Family History Father Family Medical History: Hypertension General Exam Limitations: no limitations General appearance: alert, in no apparent distress Head exam: Present: normocephalic Eye exam: Present: normal appearance Neck exam: Present: normal inspection Respiratory exam: Present: wheezes (Mild expiratory) Cardiovascular Exam: Present: regular rate, normal rhythm Expanded Peripheral pulses: 2+: Radial (R), Radial (L), Dorsalis Pedis (R), Dorsalis Pedis (L) GI/Abdominal exam: Present: soft. Absent: tenderness Extremities exam: Present: normal inspection. Absent: pedal edema, calf tenderness Neurological exam: Present: alert Psychiatric exam: Present: normal affect, normal mood Skin exam: Present: normal color Course Vital Signs 04/30/23 10:23 Temperature 98.2 F Pulse Rate 95 Respiratory 18 Rate Blood Pressure 172/87 O2 Sat by Pulse 94 L Oximetry EKG Findings - EKG Results: EKG: interpreted by EUGENIOD (Left axis. PVC present.), sinus rhythm, normal QRS, normal ST/T Medical Decision Making - Medical Decision Making Was pt. sent in by a medical professional or institution (, PA, JEWEL GAUGER, urgent care, hospital, or shelter...) When possible be specific @ -Patient was sent from [facility] Did you speak to anyone other than the patient for history (EMS, parent, family, police, friend...)? What history was obtained from this source @ -Speak with transferring physician Did you review nursing and triage notes (agree or disagree)? Why? @ -I reviewed and agree with nursing and triage notes Were old charts reviewed (outside hosp., previous admission, EMS record, old EKG, old radiological studies, urgent care reports/EKG's, shelter records)? Report findings @ -Chart review from [facility] Differential Diagnosis (chest pain, altered mental status, abdominal pain women, abdominal pain men, vaginal bleeding, weakness, fever, dyspnea, syncope, headache, dizziness, GI bleed, back pain, seizure, CVA, palpatations, mental health, musculoskeletal)? @ -Differential Chest Pain: Stable Angina, Unstable Angina, STEMI, NSTEMI Aortic Dissection, Pneumothorax, Musculoskeletal, Esophageal Spasm GERD, Cholecystitis, Pancreatitis, Zoster, this is not meant to be an all-inclusive list. EKG interpreted by me (3pts min.). @ -As above X-rays interpreted by me (1pt min.). @ -None done CT interpreted by me (1pt min.). @ -Forte review U/S interpreted by me (1pt. min.). @ -None done What testing was considered but not performed or refused? (CT, X-rays, U/S, labs)? Why? @ -None What meds were considered but not given or refused? Why? @ -None Did you discuss the management of the patient with other professionals (professionals i.e. , SORIN, JEWEL GAUGER, lab, RT, psych nurse, social psychologist, security system engineer, teacher, space officer, egg caser)? Give summary @ -Case discussed with sound physician, Dr. Torres, who will admit for hospital call. Was smoking cessation discussed for >3mins.? @ -No Was critical care preformed (if so, how long)? @ -No Were there social determinants of health that impacted care today? How? (Homelessness, low income, unemployed, alcoholism, drug addiction, transportation, low edu. Level, literacy, decrease access to med. care, mcc, rehab)? @ -No Was there de-escalation of care discussed even if they declined (Discuss DNR or withdrawal of care, Hospice)? DNR status @ -No What co-morbidities impacted this encounter? (DM, HTN, Smoking, COPD, CAD, Canc er, CVA, ARF, Chemo, Hep., AIDS, mental health diagnosis, sleep apnea, morbid obesity)? @ -None Was patient admitted / discharged? Hospital course, mention meds given and route, prescriptions, significant lab abnormalities, going to OR and other pertinent info. @ -Patient is updated on results and plan. Patient will be admitted with cardiac consult. Admission orders written. Undiagnosed new problem with uncertain prognosis? @ -No Drug Therapy requiring intensive monitoring for toxicity (Heparin, Nitro, Insulin, Cardizem)? @ -No Were any procedures done? @ -No Diagnosis/symptom? @ -Chest pain Acute, or Chronic, or Acute on Chronic? @ -Acute Uncomplicated (without systemic symptoms) or Complicated (systemic symptoms)? @ -default Side effects of treatment? @ -No Exacerbation, Progression, or Severe Exacerbation? @ -No Poses a threat to life or bodily function? How? (Chest pain, [place], [place], pneumonia, PE, COPD, DKA, ARF, appy, cholecystitis, CVA, Diverticulitis, Homicidal, Suicidal, threat to staff... and all critical care pts) @ -Potential threatened to heart function and life chest pain. Disposition Clinical Impression: Chest pain Disposition: ADMITTED IP TO THIS HOSP Is patient prescribed a controlled substance at d/c from ED?: No Referrals: Jordyn Barron DO [Primary Care Provider] - 1-2 days Time of Disposition: 10:35
[2023-04-30] MEDS ORDERED: ASPIRIN 81 MG PO STA (10:35)
[2023-04-30] MEDS ORDERED: NITROGLYCERIN SL TABS 0.4 MG TAB SUBLINGUAL PRN (10:35)
[2023-04-30] MEDS ORDERED: IPRATROPIUM-ALBUTEROL 3 ML NEB INHALATION STA (10:37)
[2023-04-30] MEDS ORDERED: FAMOTIDINE 20 MG/2 ML VIAL IV STA (10:37)
--- NOTE | 2023-04-30 11:11 | CT ---
EXAMINATION TYPE: CT brain wo con CT DLP: 1100.4 mGycm, Automated exposure control for dose reduction was used. DATE OF EXAM: 04/30/2023 11:07 AM COMPARISON: None. CLINICAL INDICATION:Female, 67 years old with history of ? trauma, Fall TECHNIQUE: Brain: Multiple axial CT images of the brain were obtained without IV contrast. Coronal and sagittal reformats reviewed. FINDINGS: Brain: Extra-axial spaces: No abnormal extra-axial fluid collections. Ventricular system: Within normal limits Cerebral parenchyma: Cerebral atrophy. No acute intraparenchymal hemorrhage or mass effect. The harris -white junction is well differentiated. Scattered hypoattenuating areas are seen within the white mat ter. Cerebellum: Unremarkable. Mass effect: No evidence of midline shift. Intracranial vasculature: Atherosclerotic calcifications of the intracranial vessels. Soft tissues: Normal. Calvarium/osseous structures: No depressed skull fracture. Paranasal sinuses and mastoid air cells: The mastoid air cells are clear. Mild mucosal thickening of the left sphenoid sinus. Visualized orbits: Orbital contents are intact. IMPRESSION: 1. No acute intracranial process. 2. Nonspecific white matter changes, likely secondary to chronic small vessel ischemic disease.
[2023-04-30 11:28] LABS: ALT 31 U/L (4-34); African American GFR (CKD) 76 (>60 ml/min/1.73 sqM); Albumin 3.4 g/dL (3.5-5.0); Anion Gap 9 mmol/L; Blood Urea Nitrogen 37 mg/dL (7-17); Calcium 8.7 mg/dL (8.4-10.2); Carbon Dioxide 25 mmol/L (22-30); Chloride 107 mmol/L (98-107); Glucose 88 mg/dL (74-99); INR 0.9 (<1.2); Non-African American GFR(CKD) 66 (>60 ml/min/1.73 sqM); Partial Thromboplastin Time 22.3 sec (22.0-30.0); Prothrombin Time 9.8 sec (10.0-12.5); Sodium 141 mmol/L (137-145); Total Bilirubin 0.5 mg/dL (0.2-1.3); Total Protein 6.1 g/dL (6.3-8.2)
[2023-04-30] MEDS ORDERED: HYDROcodone/APAP 5-325MG 1 EACH TAB PO PRN (11:31)
[2023-04-30] MEDS ORDERED: NALOXONE 0.4 MG/ML 1 ML VIAL IVP PRN (11:31)
[2023-04-30] MEDS ORDERED: ONDANSETRON 4 MG/2 ML VIAL IVP PRN (11:31)
[2023-04-30] MEDS ORDERED: ALBUTEROL NEBULIZED 2.5 MG/3 ML INHALATION PRN (11:31)
[2023-04-30 11:34] LABS: NT-Pro-B-Type Natriuretic Pept 471 pg/mL
[2023-04-30] MEDS ORDERED: HYDROcodone/APAP 7.5-325MG 1 EACH TAB PO PRN (11:34)
[2023-04-30] MEDS: NITROGLYCERIN OINT 1 INCH/GM PACKET TOPICAL SCH ×3 (11:35→23:04)
[2023-04-30] MEDS ORDERED: FUROSEMIDE 10 MG/ML 4 ML VIAL IV STA (11:36)
[2023-04-30 11:40] LABS: Basophils % (A) 0 %; Eosinophils % (A) 0 %; HCT 37.9 % (34.0-46.0); HGB 12.4 gm/dL (11.4-16.0); Lymphocytes # (A) 2.4 k/uL (1.0-4.8); Lymphocytes % (A) 29 %; MCH 31.7 pg (25.0-35.0); MCHC 32.8 g/dL (31.0-37.0); MCV 96.8 fL (80.0-100.0); Monocytes # (A) 0.5 k/uL (0-1.0); Monocytes % (A) 6 %; Neutrophils # (A) 5.3 k/uL (1.3-7.7); Neutrophils % (A) 64 %; Platelet Count 265 k/uL (150-450); RBC 3.92 m/uL (3.80-5.40); RDW 14.8 % (11.5-15.5); WBC 8.3 k/uL (3.8-10.6)
--- NOTE | 2023-04-30 11:44 | P.HPIM ---
History of Present Illness H&P Date: 04/30/23 Patient is a 67-year-old female with known peripheral arterial disease, reported congestive heart failure, hypertension, COPD, alcohol abuse, and tobacco dependency who initially presented to [facility] with complaints of chest pain of 2 days' duration. There she underwent an extensive evaluation. Her initial EKG showed no signs of acute ischemia. Initial laboratory analysis included CMP, BNP, lipase, troponin, and CBC which was remarkable for BUN 38 & alcohol level 279. Her troponin was negative. She underwent a CT PE protocol shows negative for any pulmonary embolism. On arrival to our ER here she underwent a CBC, coags, basic metabolic profile, troponin, BNP which were remarkable for BUN 37, BNP 471, and albumin of 3.4. She underwent a CT head which showed no acute intracranial process but nonspecific white matter ischemic changes. EKG on arrival to our facility shows normal sinus rhythm at a rate of 93, normal access, normal intervals, 1 PVC, and no significant ST-T wave changes Patient seen and examined at bedside. She reports that for the last 2 days she has had a constant left-sided chest pain that is behind her left breast. It does not change with movement or exertion, no lightheadedness, no dizziness, no nausea, no radiation up into her jaw or down into her arm. It is associated with increased cough, shortness of breath, nasal stuffiness. She reports that she has been on 2 different courses of steroids over the last several weeks. She also reports that she does tend to drink heavily with a football game is on but states she does not drink daily. She also reports a fall 2 days ago where she struck her head, she denies any current headache Vital signs reviewed General: nontoxic, no distress, appears at stated age Derm: warm, dry Eyes: EOMI, no lid lag, anicteric sclera, pupils equal round reactive to light ENT: Nose and ears atraumatic, no thrush, no pharyngeal erythema Cardiovascular: S1S2 reg, no murmur, positive posterior tibial pulse bilateral, 2+ edema b/l LE Lungs: clear to auscultation bilateral, no rhonchi, no rales, no wheeze, no accessory muscle use Abdominal: soft, nontender to palpation, no guarding, no appreciable organomegaly, normal bowel sounds Ext: no gross muscle atrophy, no contractures Neuro: CN II-XII grossly intact, No focal neuro deficits Psych: Alert, oriented, appears inebriated Assessment/Plan: Chest pain, noncardiac in nature, suspect costochondritis Bilateral lower extremity edema, undetermined etiology, BNP normal at 471 Acute exacerbation of COPD Acute bronchitis - Place in obs for chest pain and COPD exacerbation -Serial troponins negative -Consult cardiology -Check echocardiogram given significance of lower extremity edema, check liver ultrasound -Start prednisone 40 mg daily, DuoNeb 0.5/3 mg QID scheduled and albuterol as needed, guaifenesin 600 mg every 12 hours, Claritin 10 mg daily, Flonase 2 sprays each nostril daily, Singulair 10 mg oral at night -Lasix 40 mg IV push twice daily -Resume aspirin 325 mg, atenolol 50 mg daily, Lipitor 40 mg at night, Plavix any 5 mg daily, Imdur 30 mg daily, continue with nitro patch -Await cardiology recommendations -Check bilateral large extremity venous Dopplers Acute alcohol intoxication, binge drinking pattern -CIWA scale with Ativan 0.5-2 mg depending on score. Will need to be monitored for sedation, respiratory depression we'll using the scale -Folic acid 1 mg daily, thiamine 100 mg daily Chronic: Possible congestive heart failure Hypertension Dyslipidemia Rheumatoid arthritis Prior DVT Imaging: As per HPI Data Review: As per HPI The patient is admitted with an anticipated less than 2 minutes stated for chest pain and acute exacerbation of COPD CODE STATUS: Full DVT prophylaxis: SCDs Discussed with: ED physician, nurse Anticipated discharge date: pending clinical course Anticipated discharge place: pending clinical course This dictation was prepared using [employer] voice recognition software. Though every attempt is made to correct errors during dictation some may still exist. Past Medical History Past Medical History: Asthma, Chest Pain / Angina, Heart Failure, COPD, Deep Vein Thrombosis (DVT), Hyperlipidemia, Hypertension, Rheumatoid Arthritis (RA), Vascular Disorder Additional Past Medical History / Comment(s): dvt rt leg History of Any Multi-Drug Resistant Organisms: None Reported Past Surgical History: Heart Catheterization, Tubal Ligation Additional Past Surgical History / Comment(s): titanium plate in right shoulder, left foot repair surgery, left ear surgery,lft fem pop ballooning Past Anesthesia/Blood Transfusion Reactions: No Reported Reaction Smoking Status: Current every day smoker - Past Family History Father Family Medical History: Hypertension Medications and Allergies Home Medications Medication Instructions Recorded Confirmed Type Albuterol Sulfate [Ventolin HFA] 2 puff INHALATION RT-Q4H PRN 11/10/19 04/30/23 History Isosorbide Mononitrate ER [Imdur] 30 mg PO DAILY 11/10/19 04/30/23 History Montelukast Sodium [Singulair] 10 mg PO HS 11/10/19 04/30/23 History atenoloL [Tenormin] 50 mg PO DAILY 11/10/19 04/30/23 History Aspirin EC [Ecotrin Low Dose] 81 mg PO DAILY 01/07/23 04/30/23 History Cetirizine HCl [Zyrtec] 10 mg PO DAILY 01/07/23 04/30/23 History Clopidogrel [Plavix] 75 mg PO DAILY 01/07/23 04/30/23 History FLUoxetine HCL [PROzac] 40 mg PO DAILY 01/07/23 04/30/23 History HYDROcodone/APAP 7.5-325MG [[place] 1 - 2 tab PO DAILY PRN 01/07/23 04/30/23 History 7.5-325] Ipratropium-Albuterol Nebulize 3 ml INHALATION RT-Q4H PRN 01/07/23 04/30/23 History [Duoneb 0.5 mg-3 mg/3 ml Soln] Rosuvastatin [Crestor] 20 mg PO HS 01/07/23 04/30/23 History Tiotropium 2.5 Mcg/Puff [Spiriva 1 puff INHALATION RT-DAILY 01/07/23 04/30/23 History Respimat 2.5 Mcg] Alendronate Sodium [Fosamax] 70 mg PO SA 02/26/23 04/30/23 History Fluticasone Nasal [place] [Flonase 2 spray EA NOSTRIL DAILY 04/30/23 04/30/23 History Nasal [place]] hydroCHLOROthiazide [Hydrodiuril] 25 mg PO DAILY 04/30/23 04/30/23 History Allergies Allergy/AdvReac Type Severity Reaction Status Date / Time No Known Allergies Allergy Verified 04/30/23 11:13 Physical Exam Osteopathic Statement: *. No significant issues noted on an osteopathic structural exam other than those noted in the History and Physical/Consult. Vitals: Vital Signs Temp Pulse Resp BP Pulse Ox 04/30/23 11:34 96 20 198/97 92 L 04/30/23 11:17 99 04/30/23 11:06 98 04/30/23 10: 98.2 F 95 18 172/87 94 L Intake and Output 04/29/23 04/30/23 04/30/23 22:59 06:59 14:59 Other: Weight 60.101 kg Results CBC & Chem 7: 04/30/23 10:38 04/30/23 10:38 Labs: Abnormal Lab Results - Last 24 Hours (Table) 04/30/23 Range/Units 10:38 PT 9.8 L (10.0-12.5) sec
[2023-04-30 11:51] LABS: AST 34 U/L (14-36); Alkaline Phosphatase 77 U/L (38-126); Potassium 4.4 mmol/L (3.5-5.1)
[2023-04-30] MEDS: predniSONE 20 MG TAB PO SCH (13:59)
[2023-04-30] MEDS: FLUoxetine HCL 20 MG CAP PO SCH (13:59)
[2023-04-30] MEDS: ISOSORBIDE MONONITRATE ER 30 MG TAB.ER.24H PO SCH (13:59)
[2023-04-30] MEDS: CLOPIDOGREL 75 MG TAB PO SCH (13:59)
[2023-04-30] MEDS: LORATADINE 10 MG TAB PO SCH (13:59)
[2023-04-30] MEDS: atenoloL 50 MG TAB PO SCH (13:59)
[2023-04-30] MEDS: FLUTICASONE 50MCG/SPRAY NASAL 16GM EA NOSTRIL SCH (15:09)
[2023-04-30] MEDS: IPRATROPIUM-ALBUTEROL 3 ML NEB INHALATION SCH ×2 (15:21→18:26)
[2023-04-30] MEDS ORDERED: LORazepam 1 MG TAB PO PRN ×4 (17:52)
[2023-04-30] MEDS ORDERED: LORazepam 0.5 MG TAB PO PRN (17:52)
--- NOTE | 2023-04-30 18:36 | US ---
EXAMINATION TYPE: US venous doppler duplex LE DATE OF EXAM: 04/30/2023 6:24 PM COMPARISON: NONE CLINICAL INDICATION: Female, 67 years old with history of edema; mild edema, h/o grafting on the righ t leg SIDE PERFORMED: Bilateral TECHNIQUE: The lower extremity deep venous system is examined utilizing real time linear array sonog shakeel with graded compression, doppler sonography and color-flow sonography. VESSELS IMAGED: Common Femoral Vein Deep Femoral Vein Greater Saphenous Vein * Femoral Vein Popliteal Vein Small Saphenous Vein * Proximal Calf Veins (* superficial vessels) Right Leg: Negative for DVT Left Leg: Negative for DVT IMPRESSION: Grayscale, color doppler, spectral doppler imaging performed of the deep veins of the lo wer extremities. There is normal flow, compressibility, vascular waveforms.
[2023-04-30] MEDS: guaiFENesin 600 MG TABLET.ER PO SCH (20:29)
[2023-04-30] MEDS: FAMOTIDINE 20 MG TAB PO SCH (20:29)
[2023-04-30] MEDS: ACETAMINOPHEN TAB 325 MG TAB PO PRN (20:29)
[2023-04-30] MEDS ORDERED: ATORVASTATIN 40 MG TAB PO SCH (21:00)
[2023-04-30] MEDS ORDERED: MONTELUKAST 10 MG TAB PO SCH (21:00)
[2023-04-30] MEDS ORDERED: MELATONIN 3 MG TABLET PO PRN (21:00)
[2023-04-30] MEDS ORDERED: FUROSEMIDE 10 MG/ML 4 ML VIAL IV SCH (21:00)
[2023-05-01] MEDS: NITROGLYCERIN OINT 1 INCH/GM PACKET TOPICAL SCH (05:24)
[2023-05-01] MEDS ORDERED: FUROSEMIDE 10 MG/ML 4 ML VIAL IV SCH (06:00)
[2023-05-01] MEDS ORDERED: NON FORMULARY DRUG (Tiotropium 2.5 Mcg/Puff 10 PUFF Each) INHALATION SCH (08:00)
[2023-05-01 08:24] VITALS: TEMP 98.1
[2023-05-01] MEDS ORDERED: FOLIC ACID 1 MG TAB PO SCH (09:00)
[2023-05-01] MEDS ORDERED: ASPIRIN 81 MG PO SCH (09:00)
[2023-05-01] MEDS ORDERED: MULTIVITAMINS, THERA 1 EACH TAB PO SCH (09:00)
[2023-05-01] MEDS ORDERED: THIAMINE 100 MG TAB PO SCH (09:00)
[2023-05-01] MEDS ORDERED: NICOTINE 14MG/24HR PATCH TRANSDERM SCH (09:00)
[2023-05-01] MEDS ORDERED: ASPIRIN 325 MG TAB PO SCH (09:00)
[2023-05-01 09:05] LABS: HCT 39.8 % (37.2-46.3); HGB 13.4 d/dL (12.0-15.0); MCH 31.6 pg (27.0-32.0); MCHC 33.7 d/dL (32.0-37.0); MCV 93.9 FL (80.0-97.0); Mean Platelet Volume 9.8 FL (9.5-12.2); NRBC Per 100 WBC 0 X 10*3/uL (0.00-0.01); Platelet Count 308 X 10*3/uL (140-440); RBC 4.24 X 10*6/uL (4.10-5.20); RDW 14.4 % (11.5-14.5); WBC 8.29 X 10*3/uL (4.50-10.00)
[2023-05-01 09:09] LABS: BUN/Creat Ratio 21.67 Ratio (12.00-20.00); Calcium 9.6 mg/dL (8.7-10.3); Carbon Dioxide 34.5 mmol/L (21.6-31.8); Chloride 95 mmol/L (96-109); Chol/HDL Ratio 2.41 Ratio; Glucose 114 mg/dL (70-110); LDL Cholesterol,Calculated 123.2 mg/dL (0.0-131.0); Magnesium 1.5 mg/dL (1.5-2.4); Potassium 4.6 mmol/L (3.5-5.5); Sodium 145 mmol/L (135-145)
[2023-05-01] MEDS: predniSONE 20 MG TAB PO SCH (09:09)
[2023-05-01] MEDS: FAMOTIDINE 20 MG TAB PO SCH (09:09)
[2023-05-01] MEDS: FLUoxetine HCL 20 MG CAP PO SCH (09:09)
[2023-05-01] MEDS: guaiFENesin 600 MG TABLET.ER PO SCH (09:09)
[2023-05-01] MEDS: CLOPIDOGREL 75 MG TAB PO SCH (09:09)
[2023-05-01] MEDS: ISOSORBIDE MONONITRATE ER 30 MG TAB.ER.24H PO SCH (09:09)
[2023-05-01] MEDS: atenoloL 50 MG TAB PO SCH (09:09)
[2023-05-01] MEDS: LORATADINE 10 MG TAB PO SCH (09:09)
[2023-05-01] MEDS: FLUTICASONE 50MCG/SPRAY NASAL 16GM EA NOSTRIL SCH (09:12)
[2023-05-01] MEDS ORDERED: hydroCHLOROthiazide 25 MG TAB PO SCH (09:15)
[2023-05-01] MEDS: IPRATROPIUM-ALBUTEROL 3 ML NEB INHALATION SCH ×3 (09:28→16:41)
--- NOTE | 2023-05-01 09:39 | XR ---
EXAMINATION TYPE: XR chest 1V portable DATE OF EXAM: 05/01/2023 9:19 AM COMPARISON: Chest radiographs from 11/12/2019, CTA chest 04/30/2023 TECHNIQUE: XR chest 1V portable Portable AP radiograph of the chest. CLINICAL INDICATION:Female, 67 years old with history of chf; FINDINGS: Patient is rotated which limits evaluation. Lungs/Pleura: There is no evidence of pleural effusion, focal consolidation, or pneumothorax. Hyperi nflation. Pulmonary vascularity: Unremarkable. Heart/mediastinum: Cardiomediastinal silhouette is prominent in size. Musculoskeletal: No acute osseous pathology. Right proximal humerus fixation hardware. IMPRESSION: 1. No acute cardiopulmonary disease process. 2. COPD changes.
--- NOTE | 2023-05-01 10:35 | US ---
EXAMINATION TYPE: US liver DATE OF EXAM: 05/01/2023 COMPARISON: NONE CLINICAL INDICATION: Female, 67 years old with history of cirrhosis; cirrhosis TECHNIQUE: Multiple sonographic images of the right upper quadrant are obtained. FINDINGS: EXAM MEASUREMENTS: Liver Length: 14.7 cm Gallbladder Wall: 0.3 cm CBD: 0.4 cm Right Kidney: 10.0 x 4.1 x 3.9 cm Pancreas: Tail obscured by overlying bowel gas Liver: appears wnl as visualized Gallbladder: no evidence of stones Evidence for sonographic Cortez's sign: no CBD: appears wnl Right Kidney: anechoic area upper/mid = 1.8 x 2.2 x 1.9cm Visualized portions of the pancreas is unremarkable. The tail is obscured by overlying bowel gas. Rocio er appears within normal limits without overt cirrhotic appearance. No focal lesion identified. Gallb ladder demonstrates no stones, wall thickening, or surrounding fluid. Negative sonographic Cortez's s ign. Common bile duct is within normal limits. Right kidney demonstrates no evidence for hydronephros is, nephrolithiasis, or solid mass. Simple appearing cyst measuring up to 2.2 cm identified. IMPRESSION: 1. No acute process. 2. Noncirrhotic appearance of the liver. No focal lesion identified.
--- NOTE | 2023-05-01 12:12 | P.CRDCN ---
History of Present Illness History of present illness: HISTORY OF PRESENT ILLNESS: This is a 67-year-old female with a past medical history significant for peripheral vascular disease with previous lower extremity intervention, hypertension, hyperlipidemia, nicotine dependence, and alcohol abuse. Patient follows in the office with Dr. Hines. We have been asked to see the patient in consultation for chest pain. Patient examined at the bedside. Patient was transferred from [facility] for cardiology evaluation. Patient was found to be acutely intoxicated on arrival to [place]. She does report falling at home. She complains of rib pain and back pain. She states the pain is worse with deep inspiration. She also reports the pain is worse when she stands up from a sitting position feels like there is a pulling sensation in her ribs. * EKG reveals sinus mechanism with no signs of acute ischemia * Chest xray COPD changes. No acute cardiopulmonary process. * Most recent echocardiogram obtained in November 2019 revealing ejection fraction 55-60%, trace MR, trace TR REVIEW OF SYSTEMS: At the time of my exam: CONSTITUTIONAL: Denies fever or chills. HEENT: Denies blurred vision, vision changes, or eye pain. Denies hemoptysis CARDIOVASCULAR: Denies chest pain. Denies orthopnea. Denies PND. Denies palpitations RESPIRATORY: Denies shortness of breath. GASTROINTESTINAL: Denies abdominal pain. Denies nausea or vomiting. HEMATOLOGIC: Denies bleeding disorders. GENITOURINARY: Denies any blood in urine. SKIN: Denies pruitis. Denies rash. PHYSICAL EXAM: VITAL SIGNS: Reviewed. GENERAL: Well-developed in no acute distress. HEENT: Head is normocephalic. Pupils are equal, round. Sclerae anicteric. Mucous membranes of the mouth are moist. Neck supple. No JVD or thyromegaly LUNGS: Respirations even and unlabored. Lungs essentially clear to auscultation bilaterally. HEART: Regular rate and rhythm. S1 and S2 heard. ABDOMEN: Soft. Nondistended. Nontender. EXTREMITIES: Normal range of motion. No clubbing or cyanosis. Peripheral pulses intact. No lower extremity edema NEUROLOGIC: Awake and alert. Oriented x 3. ASSESSMENT: Chest pain, atypical, troponin negative 3, appears musculoskeletal in nature Acute alcohol intoxication Peripheral vascular disease with previous lower extremity intervention, most recently in February 2023 with stenting of the right SFA and angioplasty of the right anterior tibial artery Hypertension Hyperlipidemia Nicotine dependence History of alcohol abuse PLAN: An acute coronary event has been ruled out Resume home cardiac medications Continue dual antiplatelet therapy secondary to recent lower extremity stenting Abstinence from alcohol recommended Obtain 2-D echo to assess cardiac structure and function If echocardiogram does not reveal any significant abnormalities, the patient may be discharged today from a cardiac standpoint Nurse practitioner note has been reviewed by physician. Signing provider agrees with the documented findings, assessment, and plan of care. Past Medical History Past Medical History: Asthma, Chest Pain / Angina, Heart Failure, COPD, Deep Vein Thrombosis (DVT), Hyperlipidemia, Hypertension, Rheumatoid Arthritis (RA), Vascular Disorder Additional Past Medical History / Comment(s): dvt rt leg with stents, fractured tailbone History of Any Multi-Drug Resistant Organisms: None Reported Past Surgical History: Heart Catheterization, Tonsillectomy, Tubal Ligation Additional Past Surgical History / Comment(s): titanium plate in right shoulder, left foot repair surgery, left ear surgery, lft fem pop ballooning. right leg stentsx2, Past Anesthesia/Blood Transfusion Reactions: No Reported Reaction Past Psychological History: Anxiety, Depression Smoking Status: Current every day smoker Past Alcohol Use History: Heavy Additional Past Alcohol Use History / Comment(s): 1 pk/day/50yrs. drinks rum and coke 3-4 times a week. Past Drug Use History: None Reported - Past Family History Father Family Medical History: Coronary Artery Disease (CAD), Diabetes Mellitus, Hypertension, Myocardial Infarction (RI) Additional Family Medical History / Comment(s): cabbag Mother Family Medical History: Hypertension, Myocardial Infarction (RI) Additional Family Medical History / Comment(s): drug abuse Brother(s) Family Medical History: Cancer Additional Family Medical History / Comment(s): brain cancer Medications and Allergies Home Medications Medication Instructions Recorded Confirmed Type Albuterol Sulfate [Ventolin HFA] 2 puff INHALATION RT-Q4H PRN 11/10/19 04/30/23 History Isosorbide Mononitrate ER [Imdur] 30 mg PO DAILY 11/10/19 04/30/23 History Montelukast Sodium [Singulair] 10 mg PO HS 11/10/19 04/30/23 History atenoloL [Tenormin] 50 mg PO DAILY 11/10/19 04/30/23 History Aspirin EC [Ecotrin Low Dose] 81 mg PO DAILY 01/07/23 04/30/23 History Cetirizine HCl [Zyrtec] 10 mg PO DAILY 01/07/23 04/30/23 History Clopidogrel [Plavix] 75 mg PO DAILY 01/07/23 04/30/23 History FLUoxetine HCL [PROzac] 40 mg PO DAILY 01/07/23 04/30/23 History HYDROcodone/APAP 7.5-325MG [[place] 1 - 2 tab PO DAILY PRN 01/07/23 04/30/23 History 7.5-325] Ipratropium-Albuterol Nebulize 3 ml INHALATION RT-Q4H PRN 01/07/23 04/30/23 History [Duoneb 0.5 mg-3 mg/3 ml Soln] Rosuvastatin [Crestor] 20 mg PO HS 01/07/23 04/30/23 History Tiotropium 2.5 Mcg/Puff [Spiriva 1 puff INHALATION RT-DAILY 01/07/23 04/30/23 History Respimat 2.5 Mcg] Alendronate Sodium [Fosamax] 70 mg PO SA 02/26/23 04/30/23 History Fluticasone Nasal [place] [Flonase 2 spray EA NOSTRIL DAILY 04/30/23 04/30/23 History Nasal [place]] hydroCHLOROthiazide [Hydrodiuril] 25 mg PO DAILY 04/30/23 04/30/23 History Allergies Allergy/AdvReac Type Severity Reaction Status Date / Time No Known Allergies Allergy Verified 04/30/23 11:13 Physical Exam Vitals: Vital Signs Temp Pulse Pulse Resp BP BP Pulse Ox 05/01/23 09:43 84 05/01/23 09:28 84 05/01/23 08:00 16 05/01/23 07:30 98.1 F 83 16 174/91 99 05/01/23 02:33 98.2 F 86 15 172/76 99 04/30/23 19:41 97.8 F 78 15 177/75 96 04/30/23 18:39 94 04/30/23 18:26 96 96 04/30/23 18:21 97.9 F 82 168/82 98 04/30/23 17:18 83 18 167/87 96 04/30/23 15:34 94 04/30/23 15:24 98 04/30/23 15:22 88 04/30/23 14:00 111 H 18 178/96 96 04/30/23 12:37 105 H 20 195/82 97 Intake and Output 04/30/23 05/01/23 05/01/23 22:59 06:59 14:59 Other: Voiding Method Toilet # Voids 2 4 Weight 60.101 kg 60 kg Results 05/01/23 06:08 05/01/23 06:08 Cardiac Enzymes 04/30/23 05/01/23 Range/Units 14:08 06:08 Troponin I <0.012 <0.012 (0.000-0.034) ng/mL Lipids 05/01/23 Range/Units 06:08 Triglycerides 159.00 H (0.00-149.00) mg/dL Cholesterol 265.00 H (0.00-200.00) mg/dL HDL Cholesterol 110.00 H (40.00-60.00) mg/dL Cholesterol/HDL Ratio 2.41 Ratio CBC 05/01/23 Range/Units 06:08 WBC 8.29 (4.50-10.00) X 10*3/uL RBC 4.24 (4.10-5.20) X 10*6/uL Hgb 13.4 (12.0-15.0) d/dL Hct 39.8 (37.2-46.3) % Plt Count 308 (140-440) X 10*3/uL Comprehensive Metabolic Panel 05/01/23 Range/Units 06:08 Sodium 145 (135-145) mmol/L Potassium 4.6 (3.5-5.5) mmol/L Chloride 95 L (96-109) mmol/L Carbon Dioxide 34.5 H (21.6-31.8) mmol/L BUN 26.0 (9.0-27.0) mg/dL Creatinine 1.2 (0.6-1.5) mg/dL Glucose 114 H (70-110) mg/dL Calcium 9.6 (8.7-10.3) mg/dL Current Medications Generic Name Dose Route Start Last Admin Trade Name Freq PRN Reason Stop Dose Admin Acetaminophen 650 mg 04/30/23 11:31 04/30/23 20:29 Acetaminophen Tab 325 Mg Tab PO 650 mg Q6HR PRN Administration Mild Pain or Fever > 100.5 Hydrocodone Bitart/Acetaminophen 1 each 04/30/23 11:31 Hydrocodone/Apap 5-325mg 1 Each Tab PO Q4HR PRN Moderate Pain (Scale 4 to 6) Albuterol Sulfate 2.5 mg 04/30/23 11:31 Albuterol Nebulized 2.5 Mg/3 Ml INHALATION RT-Q2H PRN Difficulty Breathing Albuterol/Ipratropium 3 ml 04/30/23 16:00 05/01/23 09:28 Ipratropium-Albuterol 3 Ml Neb INHALATION 3 ml RT-QID KYLIE Administration Aspirin 81 mg 05/02/23 09:00 Aspirin 81 Mg PO DAILY KYLIE Atenolol 50 mg 04/30/23 11:45 05/01/23 09:09 Atenolol 50 Mg Tab PO 50 mg DAILY KYLIE Administration Atorvastatin Calcium 40 mg 04/30/23 21:00 04/30/23 20:29 Atorvastatin 40 Mg Tab PO 40 mg HS KYLIE Administration Clopidogrel Bisulfate 75 mg 04/30/23 11:45 05/01/23 09:09 Clopidogrel 75 Mg Tab PO 75 mg DAILY KYLIE Administration Famotidine 20 mg 04/30/23 21:00 05/01/23 09:09 Famotidine 20 Mg Tab PO 20 mg BID KYLIE Administration Fluoxetine HCl 40 mg 04/30/23 11:45 05/01/23 09:09 Fluoxetine Hcl 20 Mg Cap PO 40 mg DAILY KYLIE Administration Fluticasone Propionate 2 spray 04/30/23 14:00 05/01/23 09:12 Fluticasone 50mcg/[place] Nasal 16gm EA NOSTRIL 2 spray DAILY KYLIE Administration Folic Acid 1 mg 05/01/23 09:00 05/01/23 09:09 Folic Acid 1 Mg Tab PO 1 mg DAILY KYLIE Administration Guaifenesin 600 mg 04/30/23 21:00 05/01/23 09:09 Guaifenesin 600 Mg Tablet.Er PO 600 mg Q12HR KYLIE Administration Isosorbide Mononitrate 30 mg 04/30/23 11:45 05/01/23 09:09 Isosorbide Mononitrate Er 30 Mg Tab.Er.24h PO 30 mg DAILY KYLIE Administration Loratadine 10 mg 04/30/23 11:45 05/01/23 09:09 Loratadine 10 Mg Tab PO 10 mg DAILY KYLIE Administration Lorazepam 0.5 mg 04/30/23 17:52 Lorazepam 0.5 Mg Tab PO Q4HR PRN [place] 4 To 5 Lorazepam 1 mg 04/30/23 17:52 Lorazepam 1 Mg Tab PO Q4HR PRN [place] 6 To 7 Lorazepam 2 mg 04/30/23 17:52 Lorazepam 1 Mg Tab PO Q2HR PRN [place] 10 or greater Lorazepam 2 mg 04/30/23 17:52 Lorazepam 1 Mg Tab PO Q3HR PRN [place] 8 To 9 Lorazepam 1 mg 04/30/23 17:52 Lorazepam 1 Mg Tab PO Q1HR PRN Alcohol Withdrawal Melatonin 3 mg 04/30/23 21:00 Melatonin 3 Mg Tablet PO HS PRN Insomnia Montelukast Sodium 10 mg 04/30/23 21:00 04/30/23 20:29 Montelukast 10 Mg Tab PO 10 mg HS KYLIE Administration Multivitamins 1 each 05/01/23 09:00 05/01/23 09:09 Multivitamins, [place] 1 Each Tab PO 1 each DAILY KYLIE Administration Naloxone HCl 0.2 mg 04/30/23 11:31 Naloxone 0.4 Mg/Ml 1 Ml Vial IVP Q2M PRN Opioid Reversal Nicotine 1 patch 05/01/23 09:00 05/01/23 09:10 Nicotine 14mg/24hr Patch TRANSDERM 1 patch DAILY KYLIE Administration Nitroglycerin 0.4 mg 04/30/23 10:35 Nitroglycerin Sl Tabs 0.4 Mg Tab SUBLINGUAL Q5M PRN Chest Pain Ondansetron HCl 4 mg 04/30/23 11:31 Ondansetron 4 Mg/2 Ml Vial IVP Q8HR PRN Nausea And Vomiting Prednisone 40 mg 04/30/23 11:45 05/01/23 09:09 Prednisone 20 Mg Tab PO 05/04/23 09:01 40 mg DAILY KYLIE Administration Thiamine HCl 100 mg 05/01/23 09:00 05/01/23 09:09 Thiamine 100 Mg Tab PO 100 mg DAILY KYLIE Administration Intake and Output 04/30/23 05/01/23 05/01/23 22:59 06:59 14:59 Other: Voiding Method Toilet # Voids 2 4 Weight 60.101 kg 60 kg 05/01/23 06:08 05/01/23 06:08
[2023-05-01] MEDS: ACETAMINOPHEN TAB 325 MG TAB PO PRN (12:33)
[2023-05-01 14:41] VITALS: BP 125/71; RESP 18
--- NOTE | 2023-05-01 16:36 | CA ---
Transthoracic Echo Report Name: Sultana Benito Age: 67 Gender: F : 1955 Exam Date: 04/30/2023 14:43 Exam Location: [facility] Ht (in): 63 Wt (lb): 132 Ordering Physician: Morris Vaughan DO Attending/Referring Phys: [employer] Installer Clifford Rojas Procedure CPT: Indications: CP Cardiac Hx: Technical Quality: Technically difficult study Contrast 1: Definity Total Dose (mL): 5 Contrast 2: Total Dose (mL): MEASUREMENTS (Male / Female) Normal Values 2D ECHO LV Diastolic Diameter PLAX 4.4 cm 4.2 - 5.9 / 3.9 - 5.3 cm IVS Diastolic Thickness 1.0 cm 0.6 - 1.0 / 0.6 - 0.9 cm LVPW Diastolic Thickness 1.0 cm 0.6 - 1.0 / 0.6 - 0.9 cm LV Relative Wall Thickness 0.4 RV Internal Dim ED PLAX 2.3 cm LV Diastolic Volume MOD BP 49.8 cm??? 67 - 155 / 56 - 104 cm??? LV Systolic Volume MOD BP 26.1 cm??? 22 - 58 / 19 - 49 cm??? LV Ejection Fraction MOD BP 47.6 % >= 55 % LV Cardiac Index MOD BP 1200.6 cm???/min???m??? LV Diastolic Volume MOD 4C 54.8 cm??? LV Systolic Volume MOD 4C 31.3 cm??? LV Ejection Fraction MOD 4C 43.0 % LV Cardiac Index MOD 4C 1194.3 cm???/min???m??? LV Diastolic Length 4C 6.8 cm LV Systolic Length 4C 6.3 cm LV Diastolic Volume MOD 2C 43.3 cm??? LV Systolic Volume MOD 2C 21.6 cm??? LV Ejection Fraction MOD 2C 50.2 % LV Cardiac Index MOD 2C 1099.8 cm???/min???m??? LV Diastolic Length 2C 6.5 cm LV Systolic Length 2C 6.2 cm LA Volume 42.5 cm??? 18 - 58 / 22 - 52 cm??? LA Volume Index 26.0 cm???/m??? 16 - 28 cm???/m??? DOPPLER AV Peak Velocity 137.7 cm/s AV Peak Gradient 7.6 mmHg LVOT Peak Velocity 86.2 cm/s LVOT Peak Gradient 3.0 mmHg LVOT Velocity Time Integral 15.7 cm MV Peak Velocity 130.4 cm/s MV Peak Gradient 6.8 mmHg MV Mean Velocity 69.9 cm/s MV Mean Gradient 2.4 mmHg MV Velocity Time Integral 35.3 cm MR Peak Velocity 552.4 cm/s MR Peak Gradient 122.0 mmHg Mitral E Point Velocity 71.8 cm/s Mitral A Point Velocity 115.0 cm/s Mitral E to A Ratio 0.6 MV Deceleration Time 158.4 ms MV E' Velocity 7.3 cm/s Mitral E to MV E' Ratio 9.9 PV Peak Velocity 91.3 cm/s PV Peak Gradient 3.3 mmHg FINDINGS Left Ventricle Normal LV size and wall thickness. Left ventricular ejection fraction is estimated at 55-60 %. No obvious regional wall motion abnormality. Grade 1 diastolic dysfunction. Right Ventricle Normal right ventricular size. Right Atrium Normal right atrial size. Left Atrium Normal left atrial size. LA volume index= 26ml/m2 Mitral Valve Structurally normal mitral valve. Mild MR. Aortic Valve Aortic valve not well visualized. Mild aortic regurgitation Tricuspid Valve Tricuspid valve not well visualized. Trace TR. Pulmonic Valve Pulmonic valve not well visualized. No pulmonic regurgitation. Pericardium Normal pericardium. Aorta Normal size aortic root. CONCLUSIONS Technically very difficult and limited study. Left ventricular ejection fraction is estimated at 55-60 %. No obvious regional wall motion abnormality. Grade 1 diastolic dysfunction Mild mitral regurg and mild aortic regurgitation. No pericardial effusion Previewed by: Dr Ken Berry (Electronically Signed) Final Date: 01 May 2023 16:35
[2023-05-01 17:02] VITALS: PULSE 92
--- NOTE | 2023-05-01 18:40 | P.DS ---
Providers Date of admission: 04/30/23 10:36 Expected date of discharge: 05/01/23 Attending physician: Elizabet Torres DO Consults: 04/30/23 10:35 Consult Physician Urgent Consulting Provider: Judson Hines Consult Reason/Comments: cp Do you want consulting provider notified?: Yes Primary care physician: Jordyn Barron DO Hospital Course: Discharge Diagnosis: Chest pain, due to costochondritis B/L LE edema- suspect venous insufficiency Acute exacerbation of COPD Acute bronchitis Acute alcohol intoxication, binge drinking pattern Diastolic dysfunction Hypertension Dyslipidemia Rheumatoid arthritis Prior DVT Hospital Course: Patient is a 67-year-old female with known peripheral arterial disease, reported congestive heart failure, hypertension, COPD, alcohol abuse, and tobacco dependency who initially presented to [facility] with complaints of chest pain of 2 days' duration. There she underwent an extensive evaluation. Her initial EKG showed no signs of acute ischemia. Initial laboratory analysis included CMP, BNP, lipase, troponin, and CBC which was remarkable for BUN 38 & alcohol level 279. Her troponin was negative. She underwent a CT PE protocol was negative for any pulmonary embolism. On arrival to our ER here she underwent a CBC, coags, basic metabolic profile, troponin, BNP which were remarkable for BUN 37, BNP 471, and albumin of 3.4. She underwent a CT head which showed no acute intracranial process but nonspecific white matter ischemic changes. EKG on arrival to our facility shows normal sinus rhythm at a rate of 93, normal access, normal intervals, 1 PVC, and no significant ST-T wave changes. She is admitted for chest pain rule out. She was found have COPD exacerbation with acute bronchitis. She was started on scheduled bronchodilators and steroids. By the next morning she had a rapid improvement. She continued to have some chest pain with movement. She was seen by cardiology. She underwent an echocardiogram which showed an ejection fraction of 50-55% with mild valvular disease and grade 1 diastolic dysfunction. She was doing well determined stable for discharge. Follow-up: Dr. Barron in 1-2 days, and Dr. Hines in 2 weeks, she will take prednisone 40 mg daily for the next 4 days, she continues guaifenesin 600 mg every 12 hours for the next 4 days, she will contact me 2 days of doxycycline. She will also use her nebulizer 4 times daily for the next 3 days and then resume using it as needed. Patient seen and examined at bedside. He is much better. She is feeling much better. She still of pain with movement. She feels comfortable going home. Vital signs reviewed and stable. General: nontoxic, no distress, appears at stated age Cardiovascular: S1S2 reg, no murmur, positive posterior tibial pulse bilateral, Lungs: Decreased breath sounds bilateral, no rhonchi, no rales , no accessory muscle use Abdominal: soft, nontender to palpation, no guarding, no appreciable organomegaly Ext: no gross muscle atrophy, no edema b/l lower extremities, no contractures Neuro: CN II-XI grossly intact, no focal neuro deficits Psych: Alert, oriented, appropriate affect A total of 35 minutes of time were spent preparing this complex discharge summary. Patient was discharged on 05/01/23. This dictation was prepared using [employer] voice recognition software. Though every attempt is made to correct errors during dictation some may still exist. Patient Condition at Discharge: Stable Plan - Discharge Summary New Discharge Prescriptions: New RX: predniSONE [Deltasone] 40 mg PO DAILY #8 tab RX: guaiFENesin [Mucinex] 600 mg PO Q12HR #0 tab RX: Doxycycline [Vibramycin] 100 mg PO BID 2 Days #4 capsule Continue RX: Montelukast Sodium [Singulair] 10 mg PO HS RX: Isosorbide Mononitrate ER [Imdur] 30 mg PO DAILY RX: atenoloL [Tenormin] 50 mg PO DAILY RX: Cetirizine HCl [Zyrtec] 10 mg PO DAILY RX: FLUoxetine HCL [PROzac] 40 mg PO DAILY RX: HYDROcodone/APAP 7.5-325MG [Penelope 7.5-325] 1 - 2 tab PO DAILY PRN PRN Reason: Pain RX: Alendronate Sodium [Fosamax] 70 mg PO SA RX: Fluticasone Nasal Saltese [Flonase Nasal Saltese] 2 spray EA NOSTRIL DAILY RX: Albuterol Sulfate [Ventolin HFA] 2 puff INHALATION RT-Q4H PRN #1 each PRN Reason: Shortness Of Breath RX: Aspirin EC [Ecotrin Low Dose] 81 mg PO DAILY RX: Clopidogrel [Plavix] 75 mg PO DAILY RX: Rosuvastatin [Crestor] 20 mg PO HS RX: Tiotropium 2.5 Mcg/Puff [Spiriva Respimat 2.5 Mcg] 1 puff INHALATION RT- DAILY RX: Ipratropium-Albuterol Nebulize [Duoneb 0.5 mg-3 mg/3 ml Soln] 3 ml INHALATION RT-Q4H PRN PRN Reason: Shortness Of Breath RX: hydroCHLOROthiazide [Hydrodiuril] 25 mg PO DAILY Discharge Medication List RX: Isosorbide Mononitrate ER [Imdur] 30 mg PO DAILY 11/10/19 [History] RX: Montelukast Sodium [Singulair] 10 mg PO HS 11/10/19 [History] RX: atenoloL [Tenormin] 50 mg PO DAILY 11/10/19 [History] RX: Aspirin EC [Ecotrin Low Dose] 81 mg PO DAILY 01/07/23 [History] RX: Cetirizine HCl [Zyrtec] 10 mg PO DAILY 01/07/23 [History] RX: Clopidogrel [Plavix] 75 mg PO DAILY 01/07/23 [History] RX: FLUoxetine HCL [PROzac] 40 mg PO DAILY 01/07/23 [History] RX: HYDROcodone/APAP 7.5-325MG [Penelope 7.5-325] 1 - 2 tab PO DAILY PRN 01/07/23 [History] RX: Ipratropium-Albuterol Nebulize [Duoneb 0.5 mg-3 mg/3 ml Soln] 3 ml INHALATION RT-Q4H PRN 01/07/23 [History] RX: Rosuvastatin [Crestor] 20 mg PO HS 01/07/23 [History] RX: Tiotropium 2.5 Mcg/Puff [Spiriva Respimat 2.5 Mcg] 1 puff INHALATION RT- DAILY 01/07/23 [History] RX: Alendronate Sodium [Fosamax] 70 mg PO SA 02/26/23 [History] RX: Fluticasone Nasal Saltese [Flonase Nasal Saltese] 2 spray EA NOSTRIL DAILY 04/30/23 [History] RX: hydroCHLOROthiazide [Hydrodiuril] 25 mg PO DAILY 04/30/23 [History] RX: Albuterol Sulfate [Ventolin HFA] 2 puff INHALATION RT-Q4H PRN #1 each 05/01/23 [Rx] RX: Doxycycline [Vibramycin] 100 mg PO BID 2 Days #4 capsule 05/01/23 [Rx] RX: guaiFENesin [Mucinex] 600 mg PO Q12HR #0 tab 05/01/23 [Rx] RX: predniSONE [Deltasone] 40 mg PO DAILY #8 tab 05/01/23 [Rx] Follow up Appointment(s)/Referral(s): Judson Hines MD [STAFF PHYSICIAN] - 2 Weeks Jordyn Barron DO [Primary Care Provider] - 1-2 days Activity/Diet/Wound Care/Special Instructions: Activity: As tolerated Diet: Heart healthy Special Instructions: Use your nebulizer 4 times daily for the next 3 days you can then go back as needed Take antibiotics and steroids as prescribed Abstain from smoking and alcohol weight your self daily and call Dr. Hines's office if you gain more then 3 pounds in 1 day or more than 5 pounds in 3 days Echocardiogram results: your ejection fraction is 55-60% (this means that your heart is squeezing normally), you have mild valvular disease that is related to your age, your have slight delayed relaxing of your heart which can lead to fluid retention. Discharge Disposition: HOME SELF-CARE
[2023-05-02] MEDS ORDERED: ASPIRIN 81 MG PO SCH (09:00)
== END 2023-05-01 18:38 | disposition home or self-care (01) ==
LOC: EC 10:06 → 6NMEDSUR 10:36
PROVIDERS: ADMIT Internal Medicine; ATTEND Internal Medicine
DX: M94.0 Chondrocostal junction syndrome [Tietze] (principal); R60.0 Localized edema; J44.1 Chronic obstructive pulmonary disease with (acute) exacerbation; J20.9 Acute bronchitis, unspecified; J44.0 Chronic obstructive pulmonary disease with (acute) lower respiratory infection; I11.0 Hypertensive heart disease with heart failure; I50.9 Heart failure, unspecified; E78.5 Hyperlipidemia, unspecified; I73.9 Peripheral vascular disease, unspecified; F32.A Depression, unspecified; F41.9 Anxiety disorder, unspecified; M06.9 Rheumatoid arthritis, unspecified; F10.229 Alcohol dependence with intoxication, unspecified; F17.200 Nicotine dependence, unspecified, uncomplicated; Z86.718 Personal history of other venous thrombosis and embolism; Z95.820 Peripheral vascular angioplasty status with implants and grafts; Z79.51 Long term (current) use of inhaled steroids; Z79.82 Long term (current) use of aspirin; Z79.02 Long term (current) use of antithrombotics/antiplatelets; Z79.83 Long term (current) use of bisphosphonates; Z79.899 Other long term (current) drug therapy; Y90.8 Blood alcohol level of 240 mg/100 ml or more
CPT/HCPCS: 96376 ×2; 96374; 96375; 99285; 36415; 94640 ×4; 93005; 93306; 83880; 80061; 80053; 80048; 83735; 84484 ×2; 85025; 85027; 85610; 85730; 71045; 76705; 93970; 70450; G0378 ×2; S4990; J1940 ×2; J3490; Q9957; J7512 ×2